=== PATIENT | female | born 1935 | race Caucasian/White ===

== ENCOUNTER 2023-11-26 17:23 | Observation (INO) | payer MEDICARE, BC, SELFPAY ==
[2023-11-26 10:25] VITALS: BP 131/68
--- NOTE | 2023-11-26 10:44 | ED.GENMED ---
History of Present Illness
General
Chief Complaint: Cold/Flu/URI Symptoms
Source: patient
Exam Limitations: none
Time Seen by Provider: 11/26/23 10:30
Travel History
Have you had any contact with someone who has COVID-19?: No
Do you have any symptoms of coronavirus? Fever > 100 degrees, chills, cough, shortness of breath, sore throat, loss of taste or smell, muscle aches, or headache?: No
History of Present Illness
History of Present Illness:
88-year-old female presents from home with her caregiver where she lives with her and 24-hour caregiver with complaints of overwhelming fatigue excess mucus production and loose mucousy stools. She denies chest pain. No measurable fever.
Caregivers also note a slight drop in her pulse ox over the past several days. She has vasculitis and followed by rheumatology. No history of CHF. No known sick contacts. No other complaints at this
Past History
Past History
ED Past Medical History: Cancer (basal cell carcinoma) and Other (Rosacea, eczema)
ED Past Surgical History: Cholecystectomy, Gynecological (D&C), Orthopedic (ankle fracture with an placement 2012) and Tonsilectomy
Patient has exhibited threatening behavior?: No
PSI?: No
Social History
Tobacco: Former smoker
Alcohol: Occasional
Personal:
Living: with family
Employment: Retired
Family History
Family History: Hypertension
Phy Exam
Physical Exam
Physical Exam:
General: Well-appearing female no acute respiratory distress
HEENT: Normocephalic atraumatic
Heart: Regular rate and rhythm no murmurs
Lungs: Clear to auscultation bilaterally no wheezing
Abdomen: Soft nontender nondistended
Extremities: No cyanosis or edema
Skin: Warm no rash
Abdomen soft nontender nondistended
Course
Orders/Labs/Results
Orders:
Orders
11/26/23 10:43
0.9% Sodium Chloride 500 ml [Nss] 500 ml IV BOLUS
CR Chest - 2 Views Urgent
Comment:
Reason For Exam: sob
11/26/23 11:01
COVID-19 Antigen Urgent
Source: Nasal Swab
11/26/23 11:02
Influenza A+B Rapid Molecular Urgent
MELISSA Source: Nasal Swab
Specimen Description:
11/26/23 11:14
Complete Blood Count/With Diff Urgent
Comprehensive Metabolic Panel Urgent
11/26/23 11:53
Urinalysis Reflex To Culture Urgent
Date Specimen was Collected: 11/26/23
Time Specimen was Collected: 11:42
Urine Microscopic Reflex Cult Urgent
Urine Culture Urgent
MELISSA Source: U
Specimen Description:
Date Specimen was Collected: 11/26/23
Time Specimen was Collected: 11:42
11/26/23 13:14
0.9% Sodium Chloride 500 ml [Nss] 500 ml IV BOLUS
11/26/23 15:33
Meropenem [Merrem] 1,000 mg IV NOW STA
11/26/23 15:45
Lactic Acid Q4H
Comment: CANCEL 2nd LACTIC ACID IF 1st LACTIC ACID IS LESS THAN 2
Blood Culture Q30M
MELISSA Source: Blood/Venous
Specimen Description:
11/26/23 16:15
Blood Culture Q30M
MELISSA Source: Blood/Venous
Specimen Description:
11/26/23 19:45
Lactic Acid Q4H
Comment: CANCEL 2nd LACTIC ACID IF 1st LACTIC ACID IS LESS THAN 2
Abnormal Lab Results
11/26/23 11/26/23
11:14 11:53
RBC 3.20 L 10^6/uL
(4.20-5.40)
Hgb 9.7 L g/dL
(12.0-16.0)
Hct 29.9 L %
(37.0-47.0)
MCHC 32.4 L g/dL
(33.0-37.0)
Absolute Monos (auto) 0.8 H 10^3/uL
(0.1-0.6)
Lymphocytes % 15.5 L %
(20.5-51.1)
Monocytes % 10.1 H %
(1.7-9.3)
BUN 53 H mg/dl
(7-17)
Creatinine 1.3 H mg/dL
(0.6-1.0)
Glucose 113 H mg/dl
(70-99)
Total Protein 6.2 L g/dl
(6.3-8.2)
Ur Occult Blood Reflex 1+ A
(Negative)
Leukocyte Esterase Rfl 2+ A
(Negative)
Urine RBC 3-6 A /HPF
(0-2)
Urine WBC (Reflex) 26-30 A /HPF
(0-5)
Urine Bacteria (Reflex) Few A
(Negative)
Urine Albumin (Reflex) 2+ A
(Neg - Trace)
11/26/23 11:14
11/26/23 11:14
Vital Signs
Initial and Last Documented VS:
Initial Vital Signs
Temp Pulse Resp BP
98.5 F 63 20 131/68
11/26/23 10:25 11/26/23 10:25 11/26/23 10:25 11/26/23 10:25
Last Documented Vital Signs
Temp Pulse Resp BP Pulse Ox
98.5 F 62 18 141/63 96
11/26/23 10:25 11/26/23 14:10 11/26/23 14:10 11/26/23 14:10 11/26/23 14:10
MDM/Problems Addressed
Differential Diagnosis Includes:
Main complaint is generalized weakness. Differential could include dehydration versus electrolyte abnormality versus anemia versus viral illness.
Check labs. Will order x-ray COVID and flu test. Will hydrate.
*Critical Care Note
Total Time (30-74mins, 75-104mins- exclusive of procedures): Not Applicable
Update Note
Update Note:
Patient reevaluated multiple times. Still not back to baseline. Family and caregivers expressed significant concern about significant change from baseline. She had does have a history of UTIs in the past and does have a history of
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 UA today with 26-30 white blood cells and bacteria. Chest x-ray was clear COVID was negative. Suspect possible UTI. Meropenem ordered admitted to
ED Attending Note
-
Portions of this chart may have been created with voice recognition software.� Occasional wrong word or��sound alike� substitutions may have occurred due to the inherent limitations of voice recognition software.
Discharge Plan
Departure
Patient Disposition: Admit
Date of Disposition: 11/26/23
Time of Disposition: 15:37
Admit to: Telemetry
Presentation/result/management discussed w/ accepting MD/DO: Hospitalist
Discharge Problem:
Acute UTI
Prescriptions:
No Action
pantoprazole 40 mg tablet,delayed release (DR/EC)
40 mg PO DAILY
calcium carbonate-vitamin D3 [Calcium 600 + D(3)] 600 mg-10 mcg (400 unit) Tablet
1 tab PO BID
mycophenolate mofetil 500 mg tablet
500 mg PO BID
methenamine hippurate 1 gram tablet
1 g PO BID
rosuvastatin 10 mg tablet
10 mg PO DAILY
melatonin 5 mg Tablet
7.5 mg PO HS
Refresh Classic (PF) 1.4-0.6 % Dropperette
1 drops ophthalmic (eye) QIDPRN PRN (Reason: eye redness) Qty: 0 0RF
carvedilol 3.125 mg Tablet
3.125 mg PO BID Qty: 60 0RF
Referrals:
Delio Bryson, [Family Provider] -
Interventions
Interventions:
*Risk Screen - Suicide Last Done: 11/26/23 10:25
*General Assessment Last Done: 11/26/23 10:25
*Neglect/Abuse Screening Last Done: 11/26/23 10:25
ED- Fall Risk Assessment Last Done: 11/26/23 11:05
*ED COVID-19 Vaccine History Last Done: 11/26/23 10:25
ED- Pulmonary Assessment Last Done: 11/26/23 11:17
[2023-11-26 11:27] LABS: % Basophils 0.8 % (0-2); % Eosinophils 2.5 % (0-6); % Immature Granulocytes 0.4 % (0-0.5); % Lymphocytes 15.5 % (20.5-51.1); % Monocytes 10.1 % (1.7-9.3); % Neutrophils 70.7 % (42.2-75.2); Absolute Basophils 0.1 10^3/uL (0-0.2); Absolute Eosinophils 0.2 10^3/uL (0-0.7); Absolute Lymphocytes 1.2 10^3/uL (1.2-3.4); Absolute Monocytes 0.8 10^3/uL (0.1-0.6); Absolute Neutrophils 5.5 10^3/uL (1.4-6.5); Hematocrit 29.9 % (37.0-47.0); Hemoglobin 9.7 g/dL (12.0-16.0); Mean Corp Hgb Conc. 32.4 g/dL (33.0-37.0); Mean Corpuscular Hgb 30.3 pg (27.0-31.0); Mean Corpuscular Volume 93.4 fL (81.0-99.0); Mean Platelet Volume 10.4 fL (7.4-10.4); Nucleated Red Blood Cells % 0 %; Platelet Count 244 10^3/uL (130-400); Red Cell Dist. Width 13.4 % (11.5-14.5); White Blood Cell Count 7.7 10^3/uL (4.8-10.8)
[2023-11-26] MEDS: NSS 500 IV ×2 (11:32→14:00)
[2023-11-26 11:40] LABS: ALT (SGPT) 15 U/L (0-35); AST (SGOT) 24 U/L (14-36); Albumin 3.9 g/dl (3.5-5.0); Alkaline Phosphatase 53 U/L (38-126); Blood Urea Nitrogen 53 mg/dl (7-17); Calcium 9.2 mg/dl (8.4-10.2); Carbon Dioxide 23 mmol/L (22-30); Chloride 107 mmol/L (98-107); Glucose 113 mg/dl (70-99); Potassium 4.4 mmol/L (3.5-5.1); Sodium 135 mmol/L (135-145); Total Bilirubin 0.5 mg/dl (0.2-1.3); Total Protein 6.2 g/dl (6.3-8.2); eGFR 40.05
[2023-11-26 12:06] LABS: Urine Albumin 2+ (Neg - Trace); Urine Bilirubin Negative (Negative); Urine Character Slightly Cloudy (Clear); Urine Color Yellow; Urine Glucose Negative (Negative); Urine Ketone Negative (Negative); Urine Leukocyte 2+ (Negative); Urine Nitrite Negative (Negative); Urine Occult Blood 1+ (Negative); Urine Urobilinogen Negative (Neg - 1+)
[2023-11-26 12:16] LABS: Urine Bacteria Few (Negative); Urine White Cell 26-30 /HPF (0-5)
[2023-11-26 12:21] LABS: COVID-19 Antigen Negative (Negative)
[2023-11-26 14:10] VITALS: BP 141/63
--- NOTE | 2023-11-26 16:33 | HPS.HSE ---
Addendum entered and electronically signed by Leticia Greenwood MD 11/26/23 17:07:
Patient seen and examined independently--agree with PA note
GENERAL: well developed, well nourished, female in no apparent distress
HEENT: NC/AT, constant throat clearing--no O2
HEART: irreg irreg +S1, +S2
LUNGS : clear to auscultation bilaterally
ABDOM: soft, nontender, nondistended, + bowel sounds
EXT: no cyanosis, clubbing, or edema
NEUROLOGIC: grossly intact
Generalized Weakness--multifactorial--due to possible UTI, poor PO intake, weight loss, ? depression--Consult PT/OT--Consult Dietary for weight loss and poor oral intake
Urinary Tract Infection--positive UA--Reviewed prior culture data with ESBL Klebsiella in Aug 2022--Continue meropenem pending urine culture result
Essential Hypertension--Continue Coreg
Hyperlipidemia--Continue rosuvastatin
ANCA-Associated Vasculitis--Continue mycophenolate
CKD Stage III--Creatinine at baseline
Anemia of Chronic Disease--Hgb at baseline
constant throat clearing--? GERD/reflux vs nerves--cont protonix and add pepcid at night
DVT proph: SC Heparin
code status -- FULL CODE
Original Note:
Family Physician
-
Family Physician: Delio Bryson
Chief Complaint
-
Weakness
History of Present Illness
Patient is an 88 y/o female past medical history of hypertension, chronic kidneys disease and vasculitis on immunosuppressants who presents with weakness. Additional history was obtained from patient's caregivers at the bedside. Apparently patient
has had very poor oral intake over the last week or so, and complains of nausea when presented with food. Caregivers have also noted loose/mucousy stools, but note she is consuming very little in terms of nutrition. Caregivers note she has lost
about 10 pounds due to poor oral intake. Patient denies any abdominal pain or bloating. She denies dysuria or urinary frequency. She denies fevers, sweats or chills.
Medical History
Past Medical History
Past Medical History: Reports Other
Additional Past Medical History:
Essential Hypertension
Hyperlipidemia
ANCA Vasculitis
CKD Stage III
Anemia of Chronic Disease
Recurrent UTIs
RLE DVT
Past Surgical History: Reports Other
Additional Past Surgical History:
Moh's Procedure
Cholecystectomy
Right Rotator Cuff Repair
Left Ankle ORIF
Social History
Tobacco: Former Smoker
Alcohol: None
Drug: None
Family History
Family History: Not pertinent
Allergies / Home Medications
Allergies reflects when Allergies were last updated in [facility]
Home Medications with original date entered in [facility]
Allergy/Medication List:
Allergies
Allergy/AdvReac Type Severity Reaction Status Date / Time
erythromycin base Allergy Unknown Verified 09/25/22 12:29
[Erythromycin Base]
Home Medications
pantoprazole 40 mg tablet,delayed release 40 mg PO DAILY Gastrointestinal issue 08/09/22
methenamine hippurate 1 gram tablet 1 g PO BID Urinary Issue 06/27/23
rosuvastatin 10 mg tablet 10 mg PO DAILY High Cholesterol 06/27/23
carvedilol 3.125 mg tablet 3.125 mg PO BID Blood pressure #60 tabs 06/30/23
acetaminophen 325 mg tablet (Tylenol) 325 mg PO Q6HPRN PRN mild pain 11/26/23
ascorbic acid (vitamin C) 500 mg chewable tablet (Vitamin C) 500 mg PO BID Supplement 11/26/23
calcium carbonate 500 mg calcium (1,250 mg) chewable tablet (Calcium 500) 500 mg PO BID Supplement 11/26/23
mycophenolate mofetil 500 mg tablet 500 mg PO BID Autoimmune Disorder 11/26/23
polyvinyl alcohol-povidone (PF) 1.4 %-0.6 % eye drops in a dropperette (Refresh Classic (PF)) 1 drops BOTH EYES TID dry eyes 11/26/23
Review of Systems
-
A 12 point ROS was completed and negative except as noted: Yes
Constitutional: Denies Fever or Chills
Cardiac: Denies Chest Pain or Palpitations
Abdomen/GI: Reports Nausea; Denies Abdominal Pain
Physical Exam
Vital Signs
Vital Signs
Temp Pulse Resp BP Pulse Ox
98.5 F 62 18 141/63 96
11/26/23 10:25 11/26/23 14:10 11/26/23 14:10 11/26/23 14:10 11/26/23 14:10
Physical Exam
General: Comfortable and Conversant
HEENT: Anicteric and Moist mucous membranes
Respiratory: Clear and Non Labored Respirations
Cardiac: S1/S2 and Regular Rhythm
GI: Soft, Non Tender and Non Distended
Rectal: Deferred by Provider
Musculoskeletal: No Clubbing, No Cyanosis and No Edema
Skin: Warm and Dry
Neuro: Awake, Alert and Nonfocal/grossly intact
Psych: Calm
Laboratory Results
-
11/26/23 11:14
11/26/23 11:14
Laboratory Results
Total Bilirubin 0.5 mg/dl (0.2-1.3) 11/26/23 11:14
AST 24 U/L (14-36) 11/26/23 11:14
ALT 15 U/L (0-35) 11/26/23 11:14
Alkaline Phosphatase 53 U/L (38-126) 11/26/23 11:14
Data Reviewed
-
Lab Data: Labs Reviewed by me
Old Records: Reviewed
Impression/Plan
-
Generalized Weakness
-Consult PT/OT
-Consult Dietary for weight loss and poor oral intake
Urinary Tract Infection
-Reviewed prior culture data with ESBL Klebsiella in Aug 2022
-Continue meropenem pending urine culture result
Essential Hypertension
-Continue Coreg
Hyperlipidemia
-Continue rosuvastatin
ANCA-Associated Vasculitis
-Continue mycophenolate
CKD Stage III
-Creatinine at baseline
Anemia of Chronic Disease
-Hgb at baseline
DVT proph: SC Heparin
[2023-11-26 16:40] LABS: Lactic Acid 0.7 mmol/L (0.7-2.0)
--- NOTE | 2023-11-26 16:58 | CM ---
Patient seen at bedside with physician and aides. Patient has 24/7 aides and at home in a 2 story home. Bedroom on the first floor with 2 steps/ramp to enter. Patient stated that her daughter is in charge and CM reviewed OBS/CAMPOS status and
will provide form to patient in am. Patient family supportive and patient plan is to return home with VN/aides. Patient uses the [employer] aide in [place] and her PCP is Dr. Bryson. CM will continue to follow for discharge planning needs.
Plan; home with aides.
[2023-11-26] MEDS: MERREM 1000 MG IV (16:59)
[2023-11-26 17:49] VITALS: BP 139/69
[2023-11-26 18:34] VITALS: BP 155/73; BMI 22.0
--- NOTE | 2023-11-26 18:37 | PTCARENOTE ---
patient received from quality tech. AAOx3 , no complaints, on RA, lung sounds clear, assist x1. No THURSTON/Dizzness, CP/Palp. reports 20 pds weight lose in the last few months, lives at home with and childcare teacher. optical engineering technician at bedside.
[2023-11-26] MEDS: VITAMIN C 500 MG PO (20:14)
[2023-11-26] MEDS: OSCAL CAL 500 500 MG PO (20:14)
[2023-11-26] MEDS: CELLCEPT 500 MG PO (20:14)
[2023-11-26] MEDS: COREG 3.125 MG PO (20:14)
[2023-11-26] MEDS: REFRESH EYE DROPS (PF) 1 DROPS BOTH EYES (20:15)
[2023-11-26] MEDS: HEPARIN 5000 UNITS SC (23:15)
[2023-11-26 23:47] VITALS: BP 130/62
[2023-11-27 05:59] VITALS: BMI 22.1
[2023-11-27] MEDS: MERREM 500 MG IV (06:20)
[2023-11-27] MEDS: STERILE WATER FOR INJECTION 10 ML IV (06:20)
[2023-11-27 06:23] LABS: Hematocrit 30.2 % (37.0-47.0); Hemoglobin 9.7 g/dL (12.0-16.0); Mean Corp Hgb Conc. 32.1 g/dL (33.0-37.0); Mean Corpuscular Hgb 30.5 pg (27.0-31.0); Mean Platelet Volume 10.3 fL (7.4-10.4); Platelet Count 222 10^3/uL (130-400); Red Blood Cell Count 3.18 10^6/uL (4.20-5.40); Red Cell Dist. Width 13.2 % (11.5-14.5); White Blood Cell Count 5.7 10^3/uL (4.8-10.8)
[2023-11-27 06:46] LABS: Blood Urea Nitrogen 38 mg/dl (7-17); Calcium 8.7 mg/dl (8.4-10.2); Carbon Dioxide 24 mmol/L (22-30); Chloride 110 mmol/L (98-107); Estimated Creatinine Clearance 25 ml/min; Glucose 86 mg/dl (70-99); Magnesium 2.1 mg/dl (1.6-2.3); Potassium 4.1 mmol/L (3.5-5.1); Sodium 136 mmol/L (135-145); eGFR 44.08
[2023-11-27 07:00] VITALS: BP 150/87
[2023-11-27 07:17] LABS: TSH Reflex To Free T4 2.76 uIU/ml (0.47-4.68)
[2023-11-27] MEDS: PROTONIX 40 MG PO (09:27)
[2023-11-27] MEDS: OSCAL CAL 500 500 MG PO ×2 (09:27→21:17)
[2023-11-27] MEDS: CRESTOR 10 MG PO (09:27)
[2023-11-27] MEDS: HEPARIN 5000 UNITS SC ×2 (09:27→17:46)
[2023-11-27] MEDS: CELLCEPT 500 MG PO ×2 (09:27→21:11)
[2023-11-27] MEDS: COREG 3.125 MG PO (09:27)
[2023-11-27] MEDS: VITAMIN C 500 MG PO ×2 (09:27→21:20)
[2023-11-27] MEDS: REFRESH EYE DROPS (PF) 1 DROPS BOTH EYES ×3 (09:28→21:20)
--- NOTE | 2023-11-27 11:34 | CM ---
Addendum entered by Jessica Galloway 11/27/23 11:50:
CM spoke with patient daughter regarding OBS status and she requested CM send the form to her at [email or web address]
Original Note:
Patient seen at bedside with physician and patient aide. Patient asking about discharge home. CM to provide OBS/CAMPOS form and and will call patient daughter to confirm discharge plan. Patient more interactive today. CM will continue to follow for
discharge planning needs.
Plan; home with aides and VN supports
--- NOTE | 2023-11-27 11:49 | W.PN.HOSP.TC ---
Today's Communication/Plan
-
stop meropenem
await blood cultures
likely d/c tomorrow
Assessment / Plan
Assessment / Plan
pt is an 88 year old female
Generalized Weakness--multifactorial--due to possible UTI (ruled out), poor PO intake, weight loss, ? depression--await PT/OT--Consult Dietary for weight loss and poor oral intake
Urinary Tract Infection (ruled out, urine culture with contaminants)--Reviewed prior culture data with ESBL Klebsiella in Aug 2022--stop meropenem--await blood culture result
Essential Hypertension--Continue Coreg
Hyperlipidemia--Continue rosuvastatin
ANCA-Associated Vasculitis--Continue mycophenolate
CKD Stage III--Creatinine at baseline
Anemia of Chronic Disease--Hgb at baseline
constant throat clearing--? GERD/reflux vs nerves--cont protonix and add pepcid at night
DVT proph: SC Heparin
code status -- FULL CODE
Anticipated Discharge: Within 24 hours
Subjective/Interval History
-
Date of Service: November 27, 2023
pt without c/o--wants to go home
Objective Data
-
Labs:
Laboratory Results
11/27/23
06:03
WBC 5.7
Hgb 9.7 L
Hct 30.2 L
Plt Count 222
Sodium 136
Potassium 4.1
Chloride 110 H
Carbon Dioxide 24
BUN 38 H
Creatinine 1.2 H
Glucose 86
Calcium 8.7
Vital Signs:
max temp for 24 hours
11/26/23
18:34
Temp 98.6 F
Vital Signs
Temp Pulse Resp BP Pulse Ox
98.0 F 67 17 150/87 96
11/27/23 07:00 11/27/23 09:27 11/27/23 07:00 11/27/23 09:27 11/27/23 07:00
I&O
11/26/23 11/27/23 11/28/23
06:59 06:59 06:59
Intake Total 1000 / 1000
Output Total 0 / 0
Balance 1000 / 1000
Review of Systems
-
All other systems: Reviewed and negative
Physical Exam
-
General: Well Developed, Well Nourished and No Apparent Distress
HEENT: Normocephalic and Atraumatic
Respiratory: Clear to Auscultation; Negative Wheezes or Rhonchi
Cardiac: Regular Rhythm and S1/S2; Negative Murmur
GI: Soft, Nontender, Nondistended and Normal Bowel Sounds
Musculoskeletal: No Clubbing, No Cyanosis and No Edema
Neuro: Awake
Psych: Calm
[2023-11-27 14:37] VITALS: BMI 22.1
[2023-11-27 15:00] VITALS: BP 112/72
[2023-11-27 15:02] VITALS: BP 111/71; BP 128/70; PULSE 59; O2SAT 97
[2023-11-27] MEDS: COREG PO (21:13)
[2023-11-27] MEDS: PEPCID 10 MG PO (21:25)
[2023-11-27 23:35] VITALS: BP 139/69
[2023-11-28] MEDS: HEPARIN 5000 UNITS SC ×2 (00:26→08:37)
[2023-11-28 06:00] VITALS: BMI 22.4
[2023-11-28 07:00] VITALS: BP 146/82
[2023-11-28] MEDS: OSCAL CAL 500 500 MG PO (08:37)
[2023-11-28] MEDS: REFRESH EYE DROPS (PF) 1 DROPS BOTH EYES (08:37)
[2023-11-28] MEDS: CELLCEPT 500 MG PO (08:37)
[2023-11-28] MEDS: CRESTOR 10 MG PO (08:37)
[2023-11-28] MEDS: COREG 3.125 MG PO (08:37)
[2023-11-28] MEDS: VITAMIN C 500 MG PO (08:37)
[2023-11-28] MEDS: PROTONIX 40 MG PO (08:37)
--- NOTE | 2023-11-28 10:26 | W.PN.HOSP.TC ---
Today's Communication/Plan
-
d/c
Assessment / Plan
Assessment / Plan
pt is an 88 year old female
Generalized Weakness--multifactorial--due to possible UTI (ruled out), poor PO intake, weight loss, ?depression--apprec PT/OT--Consult Dietary for weight loss and poor oral intake
Urinary Tract Infection (ruled out, urine culture with contaminants)--Reviewed prior culture data with ESBL Klebsiella in Aug 2022--stop meropenem-- blood culture negative
Essential Hypertension--Continue Coreg
Hyperlipidemia--Continue rosuvastatin
ANCA-Associated Vasculitis--Continue mycophenolate
CKD Stage III--Creatinine at baseline
Anemia of Chronic Disease--Hgb at baseline
constant throat clearing--? GERD/reflux vs nerves--cont protonix and add pepcid at night
DVT proph: SC Heparin
code status -- FULL CODE
Anticipated Discharge: Today
Subjective/Interval History
-
Date of Service: November 28, 2023
pt ready to go home
Objective Data
-
Vital Signs:
max temp for 24 hours
11/27/23
15:00
Temp 98.1 F
Vital Signs
Temp Pulse Resp BP Pulse Ox
98.2 F 82 17 146/82 97
11/28/23 07:00 11/28/23 08:37 11/28/23 07:00 11/28/23 08:37 11/28/23 07:00
I&O
11/27/23 11/28/23 11/29/23
06:59 06:59 06:59
Intake Total 1000 / 1000 660 / 660
Output Total 0 / 0
Balance 1000 / 1000 660 / 660
Review of Systems
-
All other systems: Reviewed and negative
Physical Exam
-
General: Well Developed, Well Nourished and No Apparent Distress
HEENT: Normocephalic and Atraumatic
Respiratory: Clear to Auscultation; Negative Wheezes or Rhonchi
Cardiac: Regular Rhythm and S1/S2; Negative Murmur
GI: Soft, Nontender, Nondistended and Normal Bowel Sounds
Musculoskeletal: No Clubbing, No Cyanosis and No Edema
--- NOTE | 2023-11-28 10:39 | CM ---
Patient seen at bedside with physician. Patient happy for discharge, patient daughter indicated that she wanted patient to discharge with VN; asking for [facility] referral. CM will send tt to liaison. CM will continue to follow for discharge planning
needs.
Plan; home with [facility] referral
--- NOTE | 2023-11-28 12:00 | PTCARENOTE ---
Patient ready for discharge. IV Removed. Went over discharge instructions with patient and patient's daughter.
--- NOTE | 2023-11-28 12:01 | VNURNOTE ---
Home Health Liaison met with patient and caregiver Regina at 1130 to discuss [facility] nurse/therapy, visits, schedule and homebound status. Patient is agreeable and understands that visits at home will be 2-3 x per week to assess and teach medical
management.
[facility] brochure provided with contact information. Patient is aware that [facility] will contact her for start of care in 1-2 days after discharge from .
[facility] referral completed in [facility].
--- NOTE | 2023-11-28 13:55 | W.DCSUMMARY ---
Discharge Summary
Discharge Data
Date of Admission: 11/26/23
Date of Discharge: 11/28/23
-
Pending Results: No
Hospital Course
Primary care physician : Delio Bryson
Principal Discharge diagnosis : Generalized weakness
Chronic Discharge diagnosis : essential hypertension, hyperlipidemia, ANCA associated vasculitis, chronic kidney disease stage III, anemia of chronic disease, constant throat clearing
Hospital Course : Patient was an 88-year-old female who presented with complaints of weakness. Patient has caregivers and apparently the patient had very poor oral intake over the last week or so. She complained of nausea when presented with food.
Caregivers noted loose mucousy stools and was consuming very little in terms of nutrition. Caregiver noted that she lost about 10 pounds which she agrees to due to poor oral intake. Patient was brought in as observation.
Problem #1: Generalized weakness. This was thought to be multifactorial. Initial thoughts were likely urinary tract infection however that was ruled out as her urine culture showed multiple contaminants. Meropenem was started for empiric coverage
and eventually stopped. Blood cultures were negative. Patient was seen in consultation by physical therapy and Occupational Therapy. They recommended home health.
Problem #2: All other medical issues. These include essential hypertension, hyperlipidemia, ANCA associated vasculitis, chronic kidney disease stage III, anemia of chronic disease, constant throat clearing. These medical issues were stable during
her hospitalization. Medications were continued as able.
Patient is stable for discharge home at this time. If there are any questions regarding this dictation or her hospital stay, please not hesitate to call. Our office number is [phone].
Discharge Plan
-
Patient Disposition: Home with Home Care
Discharge Diagnosis/Procedures: Generalized weakness, essential hypertension, hyperlipidemia, history of ANCA associated vasculitis, chronic kidney disease stage III, anemia of chronic disease, gastroesophageal reflux disease
Condition: Good
Diet: As tolerated and Regular
Activity: As tolerated
Driving Restrictions: No driving
Bathing Restrictions: None
Other Services: VN, PT and OT
Referrals:
Delio Bryson, DO [Family Provider] - in less than 1 week
Prescriptions:
New
famotidine 20 mg Tablet
10 mg PO Q2D@2200 Qty: 30 0RF
Continued
pantoprazole 40 mg tablet,delayed release (DR/EC)
40 mg PO DAILY
methenamine hippurate 1 gram tablet
1 g PO BID
rosuvastatin 10 mg tablet
10 mg PO DAILY
carvedilol 3.125 mg Tablet
3.125 mg PO BID Qty: 60 0RF
mycophenolate mofetil 500 mg tablet
500 mg PO BID
Refresh Classic (PF) 1.4-0.6 % dropperette
1 drops BOTH EYES TID
acetaminophen [Tylenol] 325 mg Tablet
325 mg PO Q6HPRN PRN (Reason: mild pain)
ascorbic acid (vitamin C) [Vitamin C] 500 mg Tablet,Chewable
500 mg PO BID
calcium carbonate [Calcium 500] 500 mg calcium (1,250 mg) Tablet,Chewable
500 mg PO BID
Discharge Orders:
Discharge Patient (As Directed); Ordered 11/28/23
Ordered By: Leticia Greenwood
== END 2023-11-28 14:24 | disposition home health service (06) ==
LOC: 3 WEST ACU 17:23
PROVIDERS: Physician Assistant; Physician Assistant Medical; ADMITTING PHYSICIAN Internal Medicine; EMERGENCY PHYSICIAN Emergency Medicine; FAMILY PHYSICIAN Internal Medicine
DX: R53.1 Weakness (principal); R53.83 Other fatigue; E78.5 Hyperlipidemia, unspecified; I77.82 Antineutrophilic cytoplasmic antibody [ANCA] vasculitis; I12.9 Hypertensive chronic kidney disease with stage 1 through stage 4 chronic kidney disease, or unspecified chronic kidney disease; R63.4 Abnormal weight loss; R11.0 Nausea; R19.4 Change in bowel habit; K21.9 Gastro-esophageal reflux disease without esophagitis; D63.8 Anemia in other chronic diseases classified elsewhere; N18.30 Chronic kidney disease, stage 3 unspecified; Z79.624 Long term (current) use of inhibitors of nucleotide synthesis; Z86.718 Personal history of other venous thrombosis and embolism; Z88.1 Allergy status to other antibiotic agents; Z87.891 Personal history of nicotine dependence; Z90.49 Acquired absence of other specified parts of digestive tract; Z85.828 Personal history of other malignant neoplasm of skin; Z82.49 Family history of ischemic heart disease and other diseases of the circulatory system; Z87.440 Personal history of urinary (tract) infections; Z68.22 Body mass index [BMI] 22.0-22.9, adult; Z11.52 Encounter for screening for COVID-19
CPT/HCPCS: 71046; 80048; 80053; 81003; 81015; 83605; 83735; 84443; 85025; 85027; 87040; 87086; 87502; 87811; 96361; 96374; 97129; 97162; 97166; 99285; G0378; J2185

== ENCOUNTER → 2023-12-02 12:13 | Outpatient (REF) | payer MEDICARE, BC, SELFPAY ==
[2023-12-02 13:23] LABS: % Basophils 0.7 % (0-2); % Immature Granulocytes 0.4 % (0-0.5); % Lymphocytes 17.8 % (20.5-51.1); % Monocytes 8.5 % (1.7-9.3); % Neutrophils 69.6 % (42.2-75.2); Absolute Basophils 0.1 10^3/uL (0-0.2); Absolute Eosinophils 0.3 10^3/uL (0-0.7); Absolute Lymphocytes 1.5 10^3/uL (1.2-3.4); Absolute Monocytes 0.7 10^3/uL (0.1-0.6); Absolute Neutrophils 5.8 10^3/uL (1.4-6.5); Hematocrit 32.7 % (37.0-47.0); Hemoglobin 10.3 g/dL (12.0-16.0); Mean Corp Hgb Conc. 31.5 g/dL (33.0-37.0); Mean Corpuscular Volume 95.3 fL (81.0-99.0); Mean Platelet Volume 10.2 fL (7.4-10.4); Nucleated Red Blood Cells % 0 %; Platelet Count 256 10^3/uL (130-400); Red Blood Cell Count 3.43 10^6/uL (4.20-5.40); Red Cell Dist. Width 13.7 % (11.5-14.5); White Blood Cell Count 8.3 10^3/uL (4.8-10.8)
[2023-12-02 13:58] LABS: Blood Urea Nitrogen 34 mg/dl (7-17); Calcium 10.1 mg/dl (8.4-10.2); Carbon Dioxide 23 mmol/L (22-30); Chloride 103 mmol/L (98-107); Glucose 97 mg/dl (70-99); Potassium 5.2 mmol/L (3.5-5.1); Sodium 136 mmol/L (135-145); eGFR 40.05
== END ==
LOC: REG 12:13
PROVIDERS: ATTENDING PHYSICIAN Urology
DX: Z01.818 Encounter for other preprocedural examination (principal)
CPT/HCPCS: 36415; 80048; 85025; 93005

== ENCOUNTER 2023-12-18 16:41 | Inpatient (IN) | payer MEDICARE, BC, SELFPAY ==
[2023-12-18 12:34] VITALS: BP 148/75
--- NOTE | 2023-12-18 14:35 | ED.GENMED ---
History of Present Illness
General
Chief Complaint: Post Operative Problem(s)
Source: patient
Exam Limitations: none
Time Seen by Provider: 12/18/23 14:27
Travel History
Have you had any contact with someone who has COVID-19?: No
Do you have any symptoms of coronavirus? Fever > 100 degrees, chills, cough, shortness of breath, sore throat, loss of taste or smell, muscle aches, or headache?: No
History of Present Illness
History of Present Illness:
See MDM
Past History
Past History
ED Past Medical History: Cancer (basal cell carcinoma) and Other (Rosacea, eczema)
ED Past Surgical History: Cholecystectomy, Gynecological (D&C), Orthopedic (ankle fracture with an placement 2012) and Tonsilectomy
Patient has exhibited threatening behavior?: No
PSI?: No
Social History
Tobacco: Former smoker
Alcohol: Occasional
Personal:
Living: with family
Employment: Retired
Family History
Family History: Hypertension
Phy Exam
Physical Exam
Physical Exam:
See MDM
Course
Orders/Labs/Results
Orders:
Orders
12/18/23 14:30
Urinalysis Reflex To Culture Urgent
Date Specimen was Collected: 12/18/23
Time Specimen was Collected: 14:29
Urine Microscopic Reflex Cult Urgent
Urine Culture Urgent
MELISSA Source: U
Specimen Description:
Date Specimen was Collected: 12/18/23
Time Specimen was Collected: 14:29
12/18/23 14:34
0.9% Sodium Chloride 1000 ml [Nss] 1,000 ml IV BOLUS
12/18/23 14:49
Complete Blood Count/With Diff Urgent
Comprehensive Metabolic Panel Urgent
12/18/23 15:27
Meropenem [Merrem] 1,000 mg IV NOW STA
Abnormal Lab Results
12/18/23 12/18/23
14:30 14:49
RBC 3.48 L 10^6/uL
(4.20-5.40)
Hgb 10.5 L g/dL
(12.0-16.0)
Hct 32.1 L %
(37.0-47.0)
MCHC 32.7 L g/dL
(33.0-37.0)
MPV 10.6 H fL
(7.4-10.4)
Abs Immat Gran (auto) 0.1 H 10^3/uL
(0-0.05)
Absolute Monos (auto) 0.7 H 10^3/uL
(0.1-0.6)
Immature Gran % 1.1 H %
(0-0.5)
Potassium 5.2 H mmol/L
(3.5-5.1)
Chloride 108 H mmol/L
(98-107)
BUN 42 H mg/dl
(7-17)
Creatinine 1.3 H mg/dL
(0.6-1.0)
Ur Occult Blood Reflex 2+ A
(Negative)
Leukocyte Esterase Rfl 2+ A
(Negative)
Urine RBC 3-6 A /HPF
(0-2)
Urine WBC (Reflex) 16-20 A /HPF
(0-5)
Urine Bacteria (Reflex) Few A
(Negative)
12/18/23 14:49
12/18/23 14:49
Vital Signs
Initial and Last Documented VS:
Initial Vital Signs
Temp Pulse Resp BP Pulse Ox
97.9 F 64 18 148/75 100
12/18/23 12:34 12/18/23 12:34 12/18/23 12:34 12/18/23 12:34 12/18/23 12:34
Last Documented Vital Signs
Temp Pulse Resp BP Pulse Ox
97.9 F 64 18 148/75 100
12/18/23 12:34 12/18/23 12:34 12/18/23 12:34 12/18/23 12:34 12/18/23 12:34
MDM/Problems Addressed
Differential Diagnosis Includes:
HPI and MDM Narrative:
88-year-old female presenting with caregiver for evaluation of dehydration, hallucinations and urinary incontinence. Patient does have history of ESBL UTI. When she gets an infection, she starts to have incontinence issues. This is very similar
to prior episodes, per caregiver. Patient had uterine prolapse surgery last week at [facility]. Caregiver states that her p.o. intake has been poor
Given her history of ESBL UTI, will ultimately admit if urine shows evidence of infection. Will reassess after IV fluids
Physical exam
General: Weak and frail
HEENT: protecting airway. Dry mucous membrane
Neck: supple
CV: No evidence of cyanosis
Resp: No accessory muscle use
Abd: Non-distended and nontender
Extremities: No deformities
Neuro: alert
Psych: Normal affect
Skin: Intact
Problems Addressed including Acute and Chronic Conditions affecting care:
1. Urinary incontinence
Acuity: acute
Prognosis: stable
Details: Given recent surgery and history of ESBL UTI, will obtain urinalysis
2. Dehydration
Acuity: acute
Prognosis: stable
Details: Will give IV fluids
Updates
Urine concerning for infection. Will start meropenem
Differential Diagnosis (but not limited to): UTI, dehydration
Testing considered: CT abdomen/pelvis but abdomen soft nontender
Drug therapy (if applicable): OTC meds, please see d/c instruction regarding Rx drugs
Amount and/or Complexity of Data Reviewed
Clinical info obtained from: Patient
External data reviewed: N/A
Labs I independently reviewed (but not limited to): Urinalysis, white blood cell count normal
Radiology: N/A
Pulse Ox: not hypoxic
EKG independently reviewed: N/A
Timber Inspector: N/A
Critical Care: N/A
Risk of Complication:
Social Determinants of health: Good social support
Discussed with other providers: Hospitalist
Escalation of Care includes Admit/Obs: Given the concern for UTI with ongoing hallucinations, will admit
Occasional wrong word or 'sound a like' substitutions may have occurred due to the inherent limitations of voice recognition software. Read the chart carefully and recognize, using context, where substitutions have occurred.
*Critical Care Note
Total Time (30-74mins, 75-104mins- exclusive of procedures): Not Applicable
ED Attending Note
-
Portions of this chart may have been created with voice recognition software.� Occasional wrong word or��sound alike� substitutions may have occurred due to the inherent limitations of voice recognition software.
Discharge Plan
Departure
Patient Disposition: Admit
Date of Disposition: 12/18/23
Time of Disposition: 15:48
Admit to: Med/Surg
Presentation/result/management discussed w/ accepting MD/DO: Hospitalist
Discharge Problem:
Acute UTI, Acute dehydration
Prescriptions:
No Action
pantoprazole 40 mg tablet,delayed release (DR/EC)
40 mg PO DAILY
methenamine hippurate 1 gram tablet
1 g PO BID
rosuvastatin 10 mg tablet
10 mg PO DAILY
carvedilol 3.125 mg Tablet
3.125 mg PO BID Qty: 60 0RF
mycophenolate mofetil 500 mg tablet
500 mg PO BID
aspirin 81 mg Tablet,Chewable
81 mg PO DAILY
ibuprofen 600 mg Tablet
600 mg PO Q8H PRN (Reason: mild pain)
melatonin 5 mg Tablet
7.5 mg PO HS
Systane Balance 0.6 % Drops
3 drp LEFT EYE .SEE BELOW
Patient Comments:
12/18/2023, per pt. and pt.'s friend, pt. takes these eye drops between 2-3 times a day.
Systane Balance 0.6 % Drops
1 - 2 drp RIGHT EYE .SEE BELOW
Patient Comments:
12/18/2023, per pt. and pt.'s friend, pt. takes these eye drops between 2-3 times a day.
ascorbic acid (vitamin C) [Vitamin C] 125 mg Tablet,Chewable
125 mg PO BID
Caltrate 600 plus D 600 mg-20 mcg (800 unit) Tablet,Chewable
1 tab PO BID
famotidine 20 mg tablet
10 mg PO Q48H@2200
Referrals:
Delio Bryson DO [Family Provider] -
Interventions
Interventions:
*Risk Screen - Suicide Last Done: 12/18/23 14:54
*General Assessment Last Done: 12/18/23 14:52
*Neglect/Abuse Screening Last Done: 12/18/23 14:54
*ED COVID-19 Vaccine History Last Done: 12/18/23 14:52
[2023-12-18 14:44] LABS: Urine Albumin Trace (Neg - Trace); Urine Bilirubin Negative (Negative); Urine Character Clear (Clear); Urine Color Yellow; Urine Glucose Negative (Negative); Urine Ketone Negative (Negative); Urine Leukocyte 2+ (Negative); Urine Nitrite Negative (Negative); Urine Occult Blood 2+ (Negative); Urine Specific Gravity 1.015 (<1.030); Urine Urobilinogen Negative (Neg - 1+)
[2023-12-18] MEDS: NSS 1000 IV ×2 (14:51→19:24)
[2023-12-18 14:52] VITALS: BMI 22.1
[2023-12-18 15:02] LABS: Urine Hyaline Cast 0-2 /LPF (0-2); Urine Squamous Cell 16-20 /LPF (Few)
[2023-12-18 15:04] LABS: Urine Bacteria Few (Negative); Urine White Cell 16-20 /HPF (0-5)
[2023-12-18 15:19] LABS: % Basophils 0.6 % (0-2); % Eosinophils 3.2 % (0-6); % Immature Granulocytes 1.1 % (0-0.5); % Lymphocytes 23.7 % (20.5-51.1); % Monocytes 8.5 % (1.7-9.3); % Neutrophils 62.9 % (42.2-75.2); Absolute Basophils 0.1 10^3/uL (0-0.2); Absolute Eosinophils 0.3 10^3/uL (0-0.7); Absolute Immature Granulocytes 0.1 10^3/uL (0-0.05); Absolute Monocytes 0.7 10^3/uL (0.1-0.6); Absolute Neutrophils 5.2 10^3/uL (1.4-6.5); Hematocrit 32.1 % (37.0-47.0); Hemoglobin 10.5 g/dL (12.0-16.0); Mean Corp Hgb Conc. 32.7 g/dL (33.0-37.0); Mean Corpuscular Hgb 30.2 pg (27.0-31.0); Mean Corpuscular Volume 92.2 fL (81.0-99.0); Mean Platelet Volume 10.6 fL (7.4-10.4); Nucleated Red Blood Cells % 0 %; Platelet Count 282 10^3/uL (130-400); Red Blood Cell Count 3.48 10^6/uL (4.20-5.40); Red Cell Dist. Width 13.8 % (11.5-14.5); White Blood Cell Count 8.3 10^3/uL (4.8-10.8)
[2023-12-18 15:24] LABS: ALT (SGPT) 19 U/L (0-35); AST (SGOT) 31 U/L (14-36); Albumin 4.1 g/dl (3.5-5.0); Alkaline Phosphatase 52 U/L (38-126); Blood Urea Nitrogen 42 mg/dl (7-17); Carbon Dioxide 23 mmol/L (22-30); Chloride 108 mmol/L (98-107); Estimated Creatinine Clearance 24 ml/min; Glucose 91 mg/dl (70-99); Potassium 5.2 mmol/L (3.5-5.1); Sodium 135 mmol/L (135-145); Total Bilirubin 0.5 mg/dl (0.2-1.3); Total Protein 6.5 g/dl (6.3-8.2); eGFR 40.05
[2023-12-18] MEDS: MERREM 1000 MG IV (15:55)
--- NOTE | 2023-12-18 16:30 | HPS.HSE ---
Family Physician
-
Family Physician: Delio Bryson
Chief Complaint
-
incontinence, visual hallucinations
History of Present Illness
88-year-old female past medical history of ESBL Klebsiella UTI, recent uterine prolapse surgery, hypertension, hyperlipidemia, ANCA associated vasculitis, CKD stage III, anemia of chronic disease, rosacea, eczema, basal cell carcinoma, presenting
with urinary incontinence for the past few days and visual hallucinations starting today. No fevers or chills. No nausea or vomiting. No diarrhea.
Patient had uterine prolapse surgery last week which was uncomplicated. She felt pretty good after the surgery and did not require any pain medication afterwards.
Patient is also been having pain across her lower back which is new for the past day for which she took ibuprofen. She denies any flank pain.
No smoking or alcohol use.
Medical History
Past Medical History
Past Medical History: Reports Other (ESBL Klebsiella UTI, recent uterine prolapse surgery, hypertension, hyperlipidemia, ANCA associated vasculitis, CKD stage III, anemia of chronic disease, rosacea, eczema, basal cell carcinoma, )
Past Surgical History: Reports Other ( Cholecystectomy, Gynecological (D&C), Orthopedic (ankle fracture with an placement 2012) and Tonsilectomy)
Social History
Tobacco: Non-smoker
Alcohol: None
Drug: None
Family History
Family History: Not pertinent
Allergies / Home Medications
Allergies reflects when Allergies were last updated in [employer].
Home Medications with original date entered in [employer]
Allergy/Medication List:
Allergies
Allergy/AdvReac Type Severity Reaction Status Date / Time
erythromycin base Allergy Unknown Verified 09/25/22 12:29
[Erythromycin Base]
Home Medications
pantoprazole 40 mg tablet,delayed release 40 mg PO DAILY Gastrointestinal issue 08/09/22
methenamine hippurate 1 gram tablet 1 g PO BID Urinary Issue 06/27/23
rosuvastatin 10 mg tablet 10 mg PO DAILY High Cholesterol 06/27/23
carvedilol 3.125 mg tablet 3.125 mg PO BID Blood pressure #60 tabs 06/30/23
mycophenolate mofetil 500 mg tablet 500 mg PO BID Autoimmune Disorder 11/26/23
ascorbic acid (vitamin C) 125 mg chewable tablet (Vitamin C) 125 mg PO BID 12/18/23
aspirin 81 mg chewable tablet 81 mg PO DAILY 12/18/23
calcium carbonate 600 mg-vitamin D3 20 mcg (800 unit) chewable tablet (Caltrate 600 plus D) 1 tab PO BID 12/18/23
famotidine 20 mg tablet 10 mg PO Q48H@2200 12/18/23
ibuprofen 600 mg tablet 600 mg PO Q8H PRN mild pain 12/18/23
melatonin 5 mg tablet 7.5 mg PO HS 12/18/23
propylene glycol 0.6 % eye drops (Systane Balance) 1 - 2 drp RIGHT EYE .SEE BELOW 12/18/23
propylene glycol 0.6 % eye drops (Systane Balance) 3 drp LEFT EYE .SEE BELOW 12/18/23
Review of Systems
-
History Source: Patient
A 12 point ROS was completed and negative except as noted: Yes
Constitutional: Reports No Symptoms
EENT: Reports No Symptoms
Respiratory: Reports No Symptoms
Cardiac: Reports No Symptoms
Abdomen/GI: Reports No Symptoms
: Reports No Symptoms
Musculoskeletal: Reports No Symptoms
Skin: Reports No Symptoms
Neurological: Reports No Symptoms
Endocrine: Reports No Symptoms
Hematologic/Lymphatic: Reports No Symptoms
Psych: Reports No Symptoms
Physical Exam
Vital Signs
Vital Signs
Temp Pulse Resp BP Pulse Ox
97.9 F 64 18 148/75 100
12/18/23 12:34 12/18/23 12:34 12/18/23 12:34 12/18/23 12:34 12/18/23 12:34
Physical Exam
General: Well Developed, Well Nourished and No Apparent Distress
HEENT: NormoCephalic, Moist mucous membranes and Atraumatic
Respiratory: Clear
Cardiac: S1/S2 and Regular Rhythm; No Murmur or Rub
GI: Soft, Non Tender, Non Distended and Normal Bowel Sounds; No Organomegaly
Rectal: Deferred by Provider
Musculoskeletal: No Clubbing, No Cyanosis and No Edema
Skin: No Rash
Neuro: Nonfocal/grossly intact
Laboratory Results
-
12/18/23 14:49
12/18/23 14:49
Laboratory Results
Total Bilirubin 0.5 mg/dl (0.2-1.3) 12/18/23 14:49
AST 31 U/L (14-36) 12/18/23 14:49
ALT 19 U/L (0-35) 12/18/23 14:49
Alkaline Phosphatase 52 U/L (38-126) 12/18/23 14:49
Data Reviewed
-
Lab Data: Labs Reviewed by me
Old Records: Reviewed
Impression/Plan
-
IMPRESSION:
PLAN:
# Urinary tract infection
# Prior history of ESBL Klebsiella UTI
-UA shows +2 leukocyte esterase, 16-20 WBC,
-IV fluids
-Urine culture pending
-Meropenem
#CKD stage III
# Hyperkalemia secondary to dehydration
-Renal function stable
-IV fluids
-Hold ibuprofen
# Lower back pain likely musculoskeletal
-Tylenol as needed
Recent uterine prolapse surgery
-Tylenol as needed for pain
-Hold ibuprofen
Essential hypertension
-Continue Coreg
-Continue prophylactic aspirin
Hyperlipidemia
-Continue statin
ANCA associated vasculitis
-Continue mycophenolate
Anemia of chronic disease
-Hemoglobin stable
GERD
-Continue Protonix, famotidine
Full code
DVT prophylaxis�heparin
Regular diet
[2023-12-18 17:22] VITALS: BP 128/85
[2023-12-18 18:19] VITALS: BP 149/77; BMI 22.2
--- NOTE | 2023-12-18 18:30 | PTCARENOTE ---
Received patient from ED into room 2138. Patient AAOx3, VSS, assist x1 with RW, ambulatory in room and OOB to chair for dinner. Patient forgetful at times, bed alarm in place, admission questions answered with assistance of patient's daughter and
home health caregiver. NSS infusing into R wrist IV at 70 ml/hr. Patient oriented to room and call falcon, states no concerns at this time.
[2023-12-18] MEDS: OSCAL 500 + D 500 MG PO (20:30)
[2023-12-18] MEDS: COREG 3.125 MG PO (20:30)
[2023-12-18] MEDS: HEPARIN 5000 UNITS SC (20:30)
[2023-12-18] MEDS: VITAMIN C 125 MG PO (20:31)
[2023-12-18] MEDS: CELLCEPT 500 MG PO (20:32)
[2023-12-18] MEDS: PEPCID 10 MG PO (21:53)
[2023-12-18] MEDS: MELATONIN 5 MG PO (21:53)
[2023-12-18] MEDS: REFRESH EYE DROPS (PF) 3 DROPS LEFT EYE (21:54)
[2023-12-18] MEDS: REFRESH EYE DROPS (PF) 1 DROPS RIGHT EYE (21:54)
[2023-12-18 23:38] VITALS: BP 125/59
[2023-12-19] MEDS: STERILE WATER FOR INJECTION 20 ML IV ×2 (03:26→15:36)
[2023-12-19] MEDS: MERREM 1000 MG IV ×2 (03:26→15:36)
[2023-12-19 06:11] LABS: % Basophils 0.6 % (0-2); % Eosinophils 5.6 % (0-6); % Immature Granulocytes 0.3 % (0-0.5); % Lymphocytes 31.5 % (20.5-51.1); Absolute Eosinophils 0.4 10^3/uL (0-0.7); Absolute Monocytes 0.7 10^3/uL (0.1-0.6); Absolute Neutrophils 3.3 10^3/uL (1.4-6.5); Hematocrit 29.3 % (37.0-47.0); Hemoglobin 9.4 g/dL (12.0-16.0); Mean Corp Hgb Conc. 32.1 g/dL (33.0-37.0); Mean Corpuscular Hgb 30.6 pg (27.0-31.0); Mean Corpuscular Volume 95.4 fL (81.0-99.0); Mean Platelet Volume 10.8 fL (7.4-10.4); Nucleated Red Blood Cells % 0 %; Platelet Count 230 10^3/uL (130-400); Red Blood Cell Count 3.07 10^6/uL (4.20-5.40); Red Cell Dist. Width 13.6 % (11.5-14.5); White Blood Cell Count 6.5 10^3/uL (4.8-10.8)
[2023-12-19 06:37] LABS: ALT (SGPT) 16 U/L (0-35); AST (SGOT) 23 U/L (14-36); Albumin 3.2 g/dl (3.5-5.0); Alkaline Phosphatase 61 U/L (38-126); Blood Urea Nitrogen 32 mg/dl (7-17); Calcium 8.3 mg/dl (8.4-10.2); Carbon Dioxide 22 mmol/L (22-30); Chloride 112 mmol/L (98-107); Estimated Creatinine Clearance 26 ml/min; Glucose 80 mg/dl (70-99); Potassium 4.4 mmol/L (3.5-5.1); Sodium 137 mmol/L (135-145); Total Bilirubin 0.3 mg/dl (0.2-1.3); Total Protein 5.3 g/dl (6.3-8.2); eGFR 44.08
[2023-12-19 07:18] VITALS: BP 140/77
[2023-12-19] MEDS: VITAMIN C 125 MG PO ×2 (08:37→20:30)
[2023-12-19] MEDS: CRESTOR 10 MG PO (08:37)
[2023-12-19] MEDS: PROTONIX 40 MG PO (08:38)
[2023-12-19] MEDS: CELLCEPT 500 MG PO ×2 (08:38→20:31)
[2023-12-19] MEDS: COREG 3.125 MG PO ×2 (08:38→20:31)
[2023-12-19] MEDS: LOW STRENGTH ASPIRIN 81 MG PO (08:38)
[2023-12-19] MEDS: REFRESH EYE DROPS (PF) 3 DROPS LEFT EYE ×3 (08:38→22:15)
[2023-12-19] MEDS: OSCAL 500 + D 500 MG PO ×2 (08:39→20:31)
[2023-12-19] MEDS: REFRESH EYE DROPS (PF) 1 DROPS RIGHT EYE ×3 (08:39→22:15)
[2023-12-19] MEDS: HEPARIN 5000 UNITS SC ×2 (08:39→20:31)
[2023-12-19] MEDS: NSS 1000 IV (08:40)
--- NOTE | 2023-12-19 08:58 | W.PN.HOSP.TC ---
Today's Communication/Plan
-
IV Meropenem
F/U urine culture
Assessment / Plan
Assessment / Plan
88-year-old female past medical history of ESBL Klebsiella UTI, recent uterine prolapse surgery, hypertension, hyperlipidemia, ANCA associated vasculitis, CKD stage III, anemia of chronic disease, rosacea, eczema, basal cell carcinoma, presenting
with urinary incontinence for the past few days and visual hallucinations..
�
PLAN:
# Urinary tract infection
# Prior history of ESBL Klebsiella UTI
-UA shows +2 leukocyte esterase, 16-20 WBC,
-Urine culture pending
-Meropenem
-OK to stop fluids
#CKD stage III
#Hyperkalemia secondary to dehydration
-Renal function stable
-hyper K resolved, OK to stop fluids
# Lower back pain likely musculoskeletal
-Tylenol as needed
Recent uterine prolapse surgery
-Tylenol as needed for pain
-Hold ibuprofen
Essential hypertension
-Continue Coreg
-Continue prophylactic aspirin
Hyperlipidemia
-Continue statin
ANCA associated vasculitis
-Continue mycophenolate
Anemia of chronic disease
-Hemoglobin stable
GERD
-Continue Protonix, famotidine
Full code
DVT prophylaxis�heparin
Regular diet
Anticipated Discharge: 24 - 48 hours
Subjective/Interval History
-
Date of Service: December 19, 2023
feeling well
no significant complaints this morning
not hallucinating per RN
Objective Data
-
Labs:
Laboratory Results
12/19/23
04:49
WBC 6.5
Hgb 9.4 L
Hct 29.3 L
Plt Count 230
Sodium 137
Potassium 4.4
Chloride 112 H
Carbon Dioxide 22
BUN 32 H
Creatinine 1.2 H
Glucose 80
Calcium 8.3 L
Total Bilirubin 0.3
AST 23
ALT 16
Alkaline Phosphatase 61
Vital Signs:
Vital Signs
Temp Pulse Resp BP Pulse Ox
97.8 F 57 16 140/77 99
12/19/23 07:18 12/19/23 08:38 12/19/23 07:18 12/19/23 08:38 12/19/23 07:18
I&O
12/18/23 12/19/23 12/20/23
06:59 06:59 06:59
Intake Total 1040 / 1040
Balance 1040 / 1040
Review of Systems
-
History Source: Patient
All other systems: Reviewed and negative
Physical Exam
-
General: Well Developed, Well Nourished and No Apparent Distress
HEENT: Normocephalic and Atraumatic
Respiratory: Clear to Auscultation; Negative Wheezes or Rhonchi
Cardiac: Regular Rhythm and S1/S2; Negative Murmur
GI: Soft, Nontender, Nondistended and Normal Bowel Sounds
Musculoskeletal: No Clubbing, No Cyanosis and No Edema
Neuro: AO x 3
Psych: Calm
Data Reviewed
-
Diagnostic Radiology: Report Reviewed by me
Labs: Labs Reviewed by me
[2023-12-19] MEDS: SENOKOT-S 1 TABLET PO (09:04)
--- NOTE | 2023-12-19 14:06 | CM ---
Reviewed the chart notes and spoke with the patient and caregiver at the bedside. The patient has caregivers daily from 8am-3pm, 3pm-8pm, and 8pm-8am through private caregivers. The patient resides with her spouse in a two story home with a
completed first floor master bedroom with shower. There is one step to enter. The patient has a rolling walker, shower chair, and multiple rails in the bathroom. The patient confirmed that the pharmacy of choice is the [facility] [address]
[facility] continues to be available to patient/family and is monitoring medical plan for needs at discharge.
Plan: Discharge plans will depend on the patient's progress.
[2023-12-19 14:09] LABS: Urine Albumin Trace (Neg - Trace); Urine Bilirubin Negative (Negative); Urine Character Clear (Clear); Urine Color Yellow; Urine Glucose Negative (Negative); Urine Ketone Negative (Negative); Urine Leukocyte 1+ (Negative); Urine Nitrite Negative (Negative); Urine Occult Blood 1+ (Negative); Urine Urobilinogen Negative (Neg - 1+)
[2023-12-19 14:28] LABS: Urine Bacteria Moderate (Negative); Urine White Cell 26-30 /HPF (0-5)
[2023-12-19 14:44] VITALS: BP 134/78; PULSE 59; O2SAT 98
[2023-12-19 15:17] VITALS: BP 137/71
--- NOTE | 2023-12-19 15:48 | CON.ID ---
Consultation
-
Date/Time Consultation Requested: 12/19/23 12:18
Date/Time Consultation Performed: 12/19/23 15:56
Requesting Provider: Dr Castellanos
Performing Provider: Dr Plaza
Reason for Consultation: esbl uti
Chief Complaint / Past History
Chief Complaint
incontinence, visual hallucinations
History of Present Illness
Ms Solis is an 88 year old female with history of uterine prolapse surgery, anaca vasculitis, ckd3, colonization with esbl who presented her for increase of her baseline incontinence. No fevers, chills, nausea, vomiting or diarrhea. Does
report lower back pain responding to ibuprofen - no flank pain.
Since arrival here she is afebrile, bp stable, without leukocytosis or L shift, cr 1.2 which is her baseline, ua iwth 26-30 wbc/hpf and moderate bacteria, about 1 year ago with an ESBL kleb UTI only sensitive to carbapenems. She has been started on
meropenem. ID is consulted for assistance with management.
Past History
Additional Past Medical History:
ESBL Klebsiella UTI, recent uterine prolapse surgery, hypertension, hyperlipidemia, ANCA associated vasculitis, CKD stage III, anemia of chronic disease, rosacea, eczema, basal cell carcinoma
Additional Past Surgical History:
Cholecystectomy, Gynecological (D&C), Orthopedic (ankle fracture with an placement 2012) and Tonsilectomy
Allergy History:
erythromycin base [Erythromycin Base] Allergy (Verified 09/25/22 12:29)
Unknown
Medications Reviewed: Yes
Social History
Tobacco: Non-Smoker
Alcohol: None
Drug: None
Family History
Family History: Not Pertinent
Review of Systems
Review of Systems
General: Negative Fever or Chills
Gasteroenterology: Negative Nausea or Vomiting
Genital / Urological: Negative Dysuria
All systems: All other systems were reviewed and were negative
Vital Signs
Temp Pulse Resp BP Pulse Ox
97.8 F 57 16 140/77 99
12/19/23 07:18 12/19/23 08:38 12/19/23 07:18 12/19/23 08:38 12/19/23 10:33
Physical Exam
Physical Exam
Constitutional: No Acute Distress
Cardiovascular: Regular Rate and S1/S2; Negative Murmur or Rub
Pulmonary: Clear and Symmetric; Negative Wheezes, Rales or Rhonchi
Gastrointestinal: Soft, Non Tender, Non Distended and Normal Bowel Sounds
Genito-Urinary: Negative Suprapubic Tenderness or CVA Tenderness
Skin: Warm and Dry; Negative Rash or Jaundice
Lab / Diagnostic Study Results
12/19/23 04:49
12/19/23 04:49
Abs Immat Gran (auto) 0.0 10^3/uL (0-0.05) 12/19/23 04:49
Absolute Neuts (auto) 3.3 10^3/uL (1.4-6.5) 12/19/23 04:49
Absolute Lymphs (auto) 2.0 10^3/uL (1.2-3.4) 12/19/23 04:49
Absolute Monos (auto) 0.7 10^3/uL (0.1-0.6) H 12/19/23 04:49
Absolute Basos (auto) 0.0 10^3/uL (0-0.2) 12/19/23 04:49
Immature Gran % 0.3 % (0-0.5) 12/19/23 04:49
Neutrophils % 51.0 % (42.2-75.2) 12/19/23 04:49
Lymphocytes % 31.5 % (20.5-51.1) 12/19/23 04:49
Monocytes % 11.0 % (1.7-9.3) H 12/19/23 04:49
Eosinophils % 5.6 % (0-6) 12/19/23 04:49
Basophils % 0.6 % (0-2) 12/19/23 04:49
Ur Squamous Epith Cells 3-5 /LPF (Few) 12/19/23 13:54
Microbiology Results
Micro:
12/19/23 13:54 Urine Culture - Pending
Urine
12/18/23 14:30 Urine Culture - Final
Urine
Assessment / Plan
Possible UTI
H/o colonization with esbl
- if fever then send blood cultures x2
- follow urine culture
- agree with meropenem - likely for short course of therapy
- follow clinically
[2023-12-19] MEDS: VISBIOME 2 CAP PO (16:22)
[2023-12-19] MEDS: MELATONIN 5 MG PO (22:15)
[2023-12-19 23:30] VITALS: BP 114/62
[2023-12-20] MEDS: MERREM 1000 MG IV (05:01)
[2023-12-20] MEDS: STERILE WATER FOR INJECTION 20 ML IV (05:01)
[2023-12-20 07:40] VITALS: BP 112/55
[2023-12-20] MEDS: LOW STRENGTH ASPIRIN 81 MG PO (08:45)
[2023-12-20] MEDS: OSCAL 500 + D 500 MG PO ×2 (08:45→21:00)
[2023-12-20] MEDS: PROTONIX 40 MG PO (08:45)
[2023-12-20] MEDS: VITAMIN C 125 MG PO ×2 (08:45→20:10)
[2023-12-20] MEDS: VISBIOME 2 CAP PO (08:45)
[2023-12-20] MEDS: SENOKOT-S 1 TABLET PO (08:46)
[2023-12-20] MEDS: CRESTOR 10 MG PO (08:46)
[2023-12-20] MEDS: REFRESH EYE DROPS (PF) 1 DROPS RIGHT EYE ×3 (08:47→22:05)
[2023-12-20] MEDS: REFRESH EYE DROPS (PF) 3 DROPS LEFT EYE ×3 (08:47→22:05)
[2023-12-20] MEDS: HEPARIN 5000 UNITS SC ×2 (08:47→20:07)
[2023-12-20] MEDS: CELLCEPT 500 MG PO ×2 (08:48→20:09)
[2023-12-20] MEDS: COREG PO ×3 (08:52→20:24)
--- NOTE | 2023-12-20 09:06 | W.PN.HOSP.TC ---
Today's Communication/Plan
-
IV Meropenem
appreciate ID
Assessment / Plan
Assessment / Plan
88-year-old female past medical history of ESBL Klebsiella UTI, recent uterine prolapse surgery, hypertension, hyperlipidemia, ANCA associated vasculitis, CKD stage III, anemia of chronic disease, rosacea, eczema, basal cell carcinoma, presenting
with urinary incontinence for the past few days and visual hallucinations..
�
PLAN:
# Urinary tract infection
# Prior history of ESBL Klebsiella UTI
-UA shows +2 leukocyte esterase, 16-20 WBC,
-Urine culture with contamination but patient improving on IV Meropenem
-appreciate ID
-continue abx course
#CKD stage III
#Hyperkalemia secondary to dehydration
-Renal function stable
-hyper K resolved, OK to stop fluids
# Lower back pain likely musculoskeletal
-Tylenol as needed
Recent uterine prolapse surgery
-Tylenol as needed for pain
-Hold ibuprofen
-some incontinence may be related to this surgery
Essential hypertension
-Continue Coreg
-Continue prophylactic aspirin
Hyperlipidemia
-Continue statin
ANCA associated vasculitis
-Continue mycophenolate
Anemia of chronic disease
-Hemoglobin stable
GERD
-Continue Protonix, famotidine
Full code
DVT prophylaxis�heparin
Regular diet
Anticipated Discharge: 24 - 48 hours
Subjective/Interval History
-
Date of Service: December 20, 2023
incontinence seems to be improving
confusion resolved
Objective Data
-
Labs:
Laboratory Results
12/20/23
06:00
Sodium Pending
Potassium Pending
Chloride Pending
Carbon Dioxide Pending
BUN Pending
Creatinine Pending
Glucose Pending
Calcium Pending
Vital Signs:
Vital Signs
Temp Pulse Resp BP Pulse Ox
98.6 F 56 16 112/55 97
12/20/23 07:40 12/20/23 07:40 12/20/23 07:40 12/20/23 07:40 12/20/23 07:40
I&O
12/19/23 12/20/23 12/21/23
06:59 06:59 06:59
Intake Total 1040 / 1040 1000 / 1000
Balance 1040 / 1040 1000 / 1000
Review of Systems
-
History Source: Patient
All other systems: Reviewed and negative
Physical Exam
-
General: Well Developed, Well Nourished and No Apparent Distress
HEENT: Normocephalic and Atraumatic
Respiratory: Clear to Auscultation; Negative Wheezes or Rhonchi
Cardiac: Regular Rhythm and S1/S2; Negative Murmur
GI: Soft, Nontender, Nondistended and Normal Bowel Sounds
Musculoskeletal: No Clubbing, No Cyanosis and No Edema
Neuro: AO x 3
Psych: Calm
Data Reviewed
-
Diagnostic Radiology: Report Reviewed by me
Labs: Labs Reviewed by me
[2023-12-20 09:50] LABS: Blood Urea Nitrogen 23 mg/dl (7-17); Calcium 8.8 mg/dl (8.4-10.2); Carbon Dioxide 24 mmol/L (22-30); Chloride 109 mmol/L (98-107); Estimated Creatinine Clearance 26 ml/min; Glucose 90 mg/dl (70-99); Potassium 4.6 mmol/L (3.5-5.1); Sodium 137 mmol/L (135-145); eGFR 44.08
--- NOTE | 2023-12-20 14:14 | W.PN.ID1 ---
Date of Service
Date of Service: December 20, 2023
Today's Communication
stop antibiotics
Assessment / Plan
Ruled Out UTI
H/o colonization with esbl
- urine culture negative x2
- stop antibiotics and follow clinically, if afebrile overnight stable for dc in the am without further antibiotics
Chief Complaint
-: UTI
Subjective / Review of Systems
afebrile
bp stable
cr stable
urine culture neg x2
no suprapubic tenderness
Vital Signs / Physical Exam
Vital Signs
Vital Signs
Temp Pulse Resp BP Pulse Ox
98.6 F 56 16 112/55 97
12/20/23 07:40 12/20/23 08:52 12/20/23 07:40 12/20/23 08:52 12/20/23 08:00
Physical Exam
Constitutional: No Acute Distress
Cardiovascular: Regular Rate and S1/S2; Negative Murmur or Rub
Pulmonary: Clear and Symmetric; Negative Wheezes or Rales
Gastrointestinal: Soft, Non Tender, Non Distended and Normal Bowel Sounds
Genito-Urinary: Negative Suprapubic Tenderness
Skin: Warm and Dry; Negative Rash or Jaundice
Objective Data
Lab Data
Lab Results
12/19/23 04:49
12/20/23 09:10
Estimated Creat Clear 26 ml/min 12/20/23 09:10
Total Bilirubin 0.3 mg/dl (0.2-1.3) 12/19/23 04:49
AST 23 U/L (14-36) 12/19/23 04:49
ALT 16 U/L (0-35) 12/19/23 04:49
Alkaline Phosphatase 61 U/L (38-126) 12/19/23 04:49
Most recent labs reviewed.
Micro Results:
12/19/23 13:54 Urine Culture - Final
Urine NO GROWTH
12/18/23 14:30 Urine Culture - Final
Urine
Care Review
Plan reviewed with: Physician (Dr Castellanos - lelia)
[2023-12-20 15:45] VITALS: BP 127/65
--- NOTE | 2023-12-20 16:02 | CM ---
IMM signed and placed on the chart.
[2023-12-20] MEDS: PEPCID 10 MG PO (22:03)
[2023-12-20] MEDS: MELATONIN 5 MG PO (22:04)
[2023-12-20 23:26] VITALS: BP 120/87
[2023-12-21 07:35] VITALS: BP 134/78
--- NOTE | 2023-12-21 08:58 | W.PN.HOSP.TC ---
Today's Communication/Plan
-
OK for DC home today
Assessment / Plan
Assessment / Plan
88-year-old female past medical history of ESBL Klebsiella UTI, recent uterine prolapse surgery, hypertension, hyperlipidemia, ANCA associated vasculitis, CKD stage III, anemia of chronic disease, rosacea, eczema, basal cell carcinoma, presenting
with urinary incontinence for the past few days and visual hallucinations..
�
PLAN:
# Urinary tract infection
# Prior history of ESBL Klebsiella UTI
-UA shows +2 leukocyte esterase, 16-20 WBC,
-Urine culture with contamination; repeat without growth
-per ID OK to stop abx; observed overnight and patient continues to feel well
-OK for DC home
-appreciate ID
#CKD stage III
#Hyperkalemia secondary to dehydration
-Renal function stable
-hyper K resolved, OK to stop fluids
# Lower back pain likely musculoskeletal
-Tylenol as needed
Recent uterine prolapse surgery
-Tylenol as needed for pain
-Hold ibuprofen
-some incontinence may be related to this surgery
Essential hypertension
-Continue Coreg
-Continue prophylactic aspirin
Hyperlipidemia
-Continue statin
ANCA associated vasculitis
-Continue mycophenolate
Anemia of chronic disease
-Hemoglobin stable
GERD
-Continue Protonix, famotidine
Full code
DVT prophylaxis�heparin
Regular diet
Anticipated Discharge: Today
Subjective/Interval History
-
Date of Service: December 21, 2023
feeling well
no fevers
urinary incontinence at baseline
wants to go home
Objective Data
-
Vital Signs:
Vital Signs
Temp Pulse Resp BP Pulse Ox
98.3 F 72 18 134/78 96
12/21/23 07:35 12/21/23 07:35 12/21/23 07:35 12/21/23 07:35 12/21/23 07:35
I&O
12/20/23 12/21/23 12/22/23
06:59 06:59 06:59
Intake Total 1000 / 1000 1320 / 1320
Balance 1000 / 1000 1320 / 1320
Review of Systems
-
History Source: Patient
All other systems: Reviewed and negative
Physical Exam
-
General: Well Developed, Well Nourished and No Apparent Distress
HEENT: Normocephalic and Atraumatic
Respiratory: Clear to Auscultation; Negative Wheezes or Rhonchi
Cardiac: Regular Rhythm and S1/S2; Negative Murmur
GI: Soft, Nontender, Nondistended and Normal Bowel Sounds
Musculoskeletal: No Clubbing, No Cyanosis and No Edema
Neuro: AO x 3
Psych: Calm
Data Reviewed
-
Diagnostic Radiology: Report Reviewed by me
Labs: Labs Reviewed by me
--- NOTE | 2023-12-21 09:03 | W.DS.TRANS ---
DC Summary - [employer]
-
Discharge Instructions:
Discharge Diagnosis/Procedures urinary incontinence, concern for urinary tract
infection
Diet Regular
Activity As tolerated
Driving Restrictions As prior to admission
Bathing Restrictions None
Instructions:
Stand-Alone Forms:
Changes to Home Medications: Yes
Discharge Medications:
DC Medications w/original date entered in [facility]
pantoprazole 40 mg tablet,delayed release 40 mg PO DAILY Gastrointestinal issue 08/09/22
methenamine hippurate 1 gram tablet 1 g PO BID Urinary Issue 06/27/23
rosuvastatin 10 mg tablet 10 mg PO DAILY High Cholesterol 06/27/23
carvedilol 3.125 mg tablet 3.125 mg PO BID Blood pressure #60 tabs 06/30/23
mycophenolate mofetil 500 mg tablet 500 mg PO BID Autoimmune Disorder 11/26/23
ascorbic acid (vitamin C) 125 mg chewable tablet (Vitamin C) 125 mg PO BID 12/18/23
aspirin 81 mg chewable tablet 81 mg PO DAILY 12/18/23
calcium carbonate 600 mg-vitamin D3 20 mcg (800 unit) chewable tablet (Caltrate 600 plus D) 1 tab PO BID 12/18/23
famotidine 20 mg tablet 10 mg PO Q48H@2200 12/18/23
melatonin 5 mg tablet 7.5 mg PO HS 12/18/23
propylene glycol 0.6 % eye drops (Systane Balance) 1 - 2 drp RIGHT EYE .SEE BELOW 12/18/23
propylene glycol 0.6 % eye drops (Systane Balance) 3 drp LEFT EYE .SEE BELOW 12/18/23
sennosides 8.6 mg-docusate sodium 50 mg tablet (Senokot-S) 1 tab PO DAILY 12/18/23
Home Medication Changes
stop motrin
Pending Results: No
[2023-12-21] MEDS: SENOKOT-S 1 TABLET PO (09:09)
[2023-12-21] MEDS: VISBIOME 2 CAP PO (09:09)
[2023-12-21] MEDS: CRESTOR 10 MG PO (09:09)
[2023-12-21] MEDS: PROTONIX 40 MG PO (09:10)
[2023-12-21] MEDS: LOW STRENGTH ASPIRIN 81 MG PO (09:10)
[2023-12-21] MEDS: VITAMIN C 125 MG PO (09:10)
[2023-12-21] MEDS: CELLCEPT 500 MG PO (09:10)
[2023-12-21] MEDS: REFRESH EYE DROPS (PF) 1 DROPS RIGHT EYE (09:11)
[2023-12-21] MEDS: OSCAL 500 + D 500 MG PO (09:11)
[2023-12-21] MEDS: REFRESH EYE DROPS (PF) 3 DROPS LEFT EYE (09:11)
[2023-12-21] MEDS: HEPARIN 5000 UNITS SC (09:12)
[2023-12-21] MEDS: COREG 3.125 MG PO (09:13)
--- NOTE | 2023-12-21 10:29 | W.PN.ID1 ---
Date of Service
Date of Service: December 21, 2023
Assessment / Plan
Ruled Out UTI
H/o colonization with esbl
- stable for dc from ID perspective
- follow up with pcp
Chief Complaint
-: UTI (ruled out)
Subjective / Review of Systems
remains afebrile - bp stable
no complaints
Vital Signs / Physical Exam
Vital Signs
Vital Signs
Temp Pulse Resp BP Pulse Ox
98.3 F 72 18 134/78 96
12/21/23 07:35 12/21/23 07:35 12/21/23 07:35 12/21/23 07:35 12/21/23 07:35
Physical Exam
Constitutional: No Acute Distress
Cardiovascular: Regular Rate and S1/S2; Negative Murmur or Rub
Pulmonary: Clear and Symmetric; Negative Wheezes or Rales
Gastrointestinal: Soft, Non Tender, Non Distended and Normal Bowel Sounds
Skin: Warm and Dry; Negative Rash or Jaundice
Objective Data
Lab Data
Lab Results
12/19/23 04:49
12/20/23 09:10
Estimated Creat Clear 26 ml/min 12/20/23 09:10
Total Bilirubin 0.3 mg/dl (0.2-1.3) 12/19/23 04:49
AST 23 U/L (14-36) 12/19/23 04:49
ALT 16 U/L (0-35) 12/19/23 04:49
Alkaline Phosphatase 61 U/L (38-126) 12/19/23 04:49
Most recent labs reviewed.
Micro Results:
12/19/23 13:54 Urine Culture - Final
Urine NO GROWTH
12/18/23 14:30 Urine Culture - Final
Urine
--- NOTE | 2023-12-21 11:27 | CM ---
Reviewed the chart notes and spoke with the patient at the bedside. Patient is being discharged today to home. Patient's caregiver will provide transportation home. Discussed if patient felt she needed VN. Declined at this time. CM continues to
be available to patient/family and is monitoring medical plan for needs at discharge.
Plan: Discharge to home with no needs.
--- NOTE | 2023-12-21 14:28 | W.DCSUMMARY ---
Discharge Summary
Discharge Data
Date of Admission: 12/18/23
Date of Discharge: 12/21/23
-
Pending Results: No
Hospital Course
Discharging Physician : Dr. Claudia Castellanos
Disposition : Home
Primary care physician : Dr. Delio Bryson
Principal Discharge diagnosis : urinary incontinence
Hospital Course :
Ms. Honey Solis is a 88 yo woman with hx ESBL Klebsiella, recent uterine prolapse surgery last week, HTN, HLD, ANCA associated vasculitis, CKD stage III presents to the ER with an increase in urinary incontinence and confusion/hallucinations.
Family worried about UTI. Patient's UA with 26-30 WBC. She was started on IV Meropenem. Urine culture returned with mixed umesh; repeated and no growth. ID consulted given unclear if patient's initial presentation was 2/2 UTI. Patient observed
off of Meropenem and did well without confusion and without change in urinary symptoms. She is discharged home. She has close follow up with her surgeon. Daughter updated.
Time spent on discharge 31 minutes.
Important imaging findings :
Procedure findings :
Discharge Plan
-
Patient Disposition: Home (Routine Discharge)
Discharge Diagnosis/Procedures: urinary incontinence, concern for urinary tract infection
Diet: Regular
Activity: As tolerated
Driving Restrictions: As prior to admission
Bathing Restrictions: None
Referrals:
Delio Bryson, DO [Family Provider] - in less than 1 week
Prescriptions:
Continued
pantoprazole 40 mg tablet,delayed release (DR/EC)
40 mg PO DAILY
methenamine hippurate 1 gram tablet
1 g PO BID
rosuvastatin 10 mg tablet
10 mg PO DAILY
carvedilol 3.125 mg Tablet
3.125 mg PO BID Qty: 60 0RF
mycophenolate mofetil 500 mg tablet
500 mg PO BID
aspirin 81 mg Tablet,Chewable
81 mg PO DAILY
melatonin 5 mg Tablet
7.5 mg PO HS
Systane Balance 0.6 % Drops
3 drp LEFT EYE .SEE BELOW
Patient Comments:
12/18/2023, per pt. and pt.'s friend, pt. takes these eye drops between 2-3 times a day.
Systane Balance 0.6 % Drops
1 - 2 drp RIGHT EYE .SEE BELOW
Patient Comments:
12/18/2023, per pt. and pt.'s friend, pt. takes these eye drops between 2-3 times a day.
ascorbic acid (vitamin C) [Vitamin C] 125 mg Tablet,Chewable
125 mg PO BID
Caltrate 600 plus D 600 mg-20 mcg (800 unit) Tablet,Chewable
1 tab PO BID
famotidine 20 mg tablet
10 mg PO Q48H@2200
sennosides-docusate sodium [Senokot-S] 8.6-50 mg Tablet
1 tab PO DAILY
Discontinued
ibuprofen 600 mg Tablet
600 mg PO Q8H PRN (Reason: mild pain)
Discharge Orders:
Discharge Patient (As Directed); Ordered 12/21/23
Ordered By: Claudia Castellanos
Discharge Date and Time
Discharge Date/Time: 12/21/23 12:52
== END 2023-12-21 12:52 | disposition home or self-care (01) | DRG 696 ==
LOC: 2 NORTH 16:41
PROVIDERS: ADMITTING PHYSICIAN Hospitalist; ATTENDING PHYSICIAN Student in an Organized Health Care Education/Training Program; CONSULT PHYSICIAN Student in an Organized Health Care Education/Training Program; EMERGENCY PHYSICIAN Student in an Organized Health Care Education/Training Program; FAMILY PHYSICIAN Internal Medicine
DX: R32 Unspecified urinary incontinence (principal); I12.9 Hypertensive chronic kidney disease with stage 1 through stage 4 chronic kidney disease, or unspecified chronic kidney disease; N18.30 Chronic kidney disease, stage 3 unspecified; D63.8 Anemia in other chronic diseases classified elsewhere; E87.5 Hyperkalemia; E86.0 Dehydration; E78.5 Hyperlipidemia, unspecified; I77.82 Antineutrophilic cytoplasmic antibody [ANCA] vasculitis; K21.9 Gastro-esophageal reflux disease without esophagitis; Z87.440 Personal history of urinary (tract) infections
CPT/HCPCS: 80048; 80053; 81003; 81015; 85025; 87086; 96361; 96374; 97162; 97530; 99285; J2185

== ENCOUNTER 2024-12-22 11:57 | Emergency (ER) | payer MEDICARE, BC, SELFPAY ==
[2024-12-22] VITALS (10 sets, daily range): BP systolic 120–163; BP diastolic 62–107
[2024-12-22 12:59] LABS: % Basophils 0.3 % (0-2); % Immature Granulocytes 0.7 % (0-0.5); % Lymphocytes 24.5 % (20.5-51.1); % Monocytes 10.5 % (1.7-9.3); Absolute Eosinophils 0.1 10^3/uL (0-0.7); Absolute Immature Granulocytes 0.1 10^3/uL (0-0.05); Absolute Lymphocytes 1.7 10^3/uL (1.2-3.4); Absolute Monocytes 0.7 10^3/uL (0.1-0.6); Absolute Neutrophils 4.2 10^3/uL (1.4-6.5); Hematocrit 33.8 % (37.0-47.0); Hemoglobin 10.7 g/dL (12.0-16.0); Mean Corp Hgb Conc. 31.7 g/dL (33.0-37.0); Mean Corpuscular Hgb 30.4 pg (27.0-31.0); Mean Platelet Volume 10.6 fL (7.4-10.4); Nucleated Red Blood Cells % 0 %; Platelet Count 225 10^3/uL (130-400); Red Blood Cell Count 3.52 10^6/uL (4.20-5.40); Red Cell Dist. Width 14.7 % (11.5-14.5); White Blood Cell Count 6.7 10^3/uL (4.8-10.8)
[2024-12-22 13:11] LABS: Blood Urea Nitrogen 26 mg/dl (7-17); Glucose 101 mg/dl (70-99)
[2024-12-22 13:12] LABS: ALT (SGPT) 17 U/L (0-35); AST (SGOT) 24 U/L (14-36); Albumin 4.1 g/dl (3.5-5.0); Alkaline Phosphatase 91 U/L (38-126); Calcium 9.4 mg/dl (8.4-10.2); Carbon Dioxide 17 mmol/L (22-30); Chloride 110 mmol/L (98-107); Lipase 475 U/L (23-300); Potassium 4.8 mmol/L (3.5-5.1); Sodium 138 mmol/L (135-145); Total Bilirubin 0.4 mg/dl (0.2-1.3); Total Protein 6.5 g/dl (6.3-8.2); eGFR 31.02
--- NOTE | 2024-12-22 15:06 | ED.GENMED ---
History of Present Illness
General
Chief Complaint: Abdominal Symptoms
Time Seen by Provider: 12/22/24 14:52
History of Present Illness
History of Present Illness:
89-year-old female presents to the emergency department for evaluation of persistent diarrhea for the past 2 months, initially was more intermittent however in the past 2 to 3 weeks it has been constant. She has also been treated for upper
respiratory tract infections as well as urinary tract infections with antibiotics in the past month. Distribution Engineering Technologist notes that she has a history of ESBL UTIs. Was most recently on antibiotics this month, last dose was about 5 days ago. Patient's p.o.
intake has been gradually declining, no bloody diarrhea, no reports of abdominal pain. She continues to have cough and nasal congestion.
Past History
Past History
ED Past Medical History: Cancer (basal cell carcinoma) and Other (Rosacea, eczema)
ED Past Surgical History: Cholecystectomy, Gynecological (D&C), Orthopedic (ankle fracture with an placement 2013) and Tonsilectomy
Patient has exhibited threatening behavior?: No
PSI?: No
Social History
Tobacco: Former smoker
Alcohol: Occasional
Personal:
Living: with family
Employment: Retired
Family History
Family History: Hypertension
Review of Systems
Review of Systems
Allergies reviewed?: Yes
All Other Systems: ROS reviewed and negative except as documented in HPI and ROS
Phy Exam
Physical Exam
Physical Exam:
GEN: Well appearing, NAD, WDWN
HEENT: Oral mucosa moist, no scleral icterus
Cardiac: Regular rate
Lung: No respiratory distress, no tachypnea, rhonchi and rales heard at the right base
Abdomen: Soft, mildly protuberant, nonrigid, nontender
MSK: No gross deformity or injuries
Skin: Good color, no pallor or jaundice, no rashes
Neuro: AO x3, moves all extremities freely
Psych: Calm, cooperative
Course
Orders/Labs/Results
Orders:
Orders
12/22/24 12:31
Complete Blood Count/With Diff Urgent
Comprehensive Metabolic Panel Urgent
Lipase Urgent
12/22/24 15:05
CT Abd/Pel (IV only)-DH only Urgent
Comment:
Reason For Exam: diarrhea
Lactated Ringers [Lr] 1,000 ml IV BOLUS
12/22/24 15:06
CR Chest - 2 Views Urgent
Comment:
Reason For Exam: coughing
12/22/24 17:15
Straight cath- Treatment ONCE
12/22/24 17:24
Urinalysis Reflex To Culture Urgent
Date Specimen was Collected: 12/22/24
Time Specimen was Collected: 17:13
Urine Microscopic Reflex Cult Urgent
Urine Culture Urgent
MELISSA Source: U
Specimen Description:
Date Specimen was Collected: 12/22/24
Time Specimen was Collected: 17:13
Abnormal Lab Results
12/22/24 12/22/24
12:31 17:24
RBC 3.52 L 10^6/uL
(4.20-5.40)
Hgb 10.7 L g/dL
(12.0-16.0)
Hct 33.8 L %
(37.0-47.0)
MCHC 31.7 L g/dL
(33.0-37.0)
RDW 14.7 H %
(11.5-14.5)
MPV 10.6 H fL
(7.4-10.4)
Abs Immat Gran (auto) 0.1 H 10^3/uL
(0-0.05)
Absolute Monos (auto) 0.7 H 10^3/uL
(0.1-0.6)
Immature Gran % 0.7 H %
(0-0.5)
Monocytes % 10.5 H %
(1.7-9.3)
Chloride 110 H mmol/L
(98-107)
Carbon Dioxide 17 L mmol/L
(22-30)
BUN 26 H mg/dl
(7-17)
Creatinine 1.6 H mg/dL
(0.6-1.0)
Glucose 101 H mg/dl
(70-99)
Lipase 475 H U/L
(23-300)
Ur Occult Blood Reflex 4+ A
(Negative)
Leukocyte Esterase Rfl 3+ A
(Negative)
Urine RBC 16-20 A /HPF
(0-2)
Urine Bacteria (Reflex) Few A
(Negative)
Urine Albumin (Reflex) 2+ A
(Neg - Trace)
12/22/24 12:31
12/22/24 12:31
Vital Signs
Initial and Last Documented VS:
Initial Vital Signs
Temp Pulse Resp BP Pulse Ox
98.0 F 80 16 122/77 98
12/22/24 12:13 12/22/24 12:13 12/22/24 12:13 12/22/24 12:13 12/22/24 12:13
Last Documented Vital Signs
Temp Pulse Resp BP Pulse Ox
98.0 F 103 19 139/62 97
12/22/24 12:13 12/22/24 18:15 12/22/24 18:15 12/22/24 18:00 12/22/24 18:15
MDM/Problems Addressed
MDM/Problems Addressed:
Unclear cause the patient's diarrheal illness. This seems to be ongoing even longer in duration than her recent antibiotic use making C. difficile less likely however the patient had no bowel movements in the ED in order to send for stool testing.
Interestingly her CT shows significant bladder wall thickening suggestive of cystitis however urinalysis not highly suspicious. Will await urine culture and observe off antibiotics as the patient has no fevers or leukocytosis, in particular given
her history of ESBL it would be walker to avoid use of excessive antibiotics. I have recommended she follow-up with GI as an outpatient, information provided to GI office for follow-up purposes. Patient was offered admission due to her reported
weakness however she prefers discharge home which I feel to be reasonable at this time. She was given 1 L crystalloid fluids intravenously and feels well enough to be discharged
*Critical Care Note
Total Time (30-74mins, 75-104mins- exclusive of procedures): Not Applicable
ED Attending Note
-
Portions of this chart may have been created with voice recognition software.� Occasional wrong word or��sound alike� substitutions may have occurred due to the inherent limitations of voice recognition software.
Discharge Plan
Departure
Patient Disposition: Home (Routine Discharge)
Date of Disposition: 12/22/24
Time of Disposition: 18:35
Patient with high blood pressure during this ER visit?: No
Discharge Problem:
Diarrhea
Instructions: Diarrhea in teens and adults
Prescriptions:
New
phenazopyridine 100 mg tablet
100 mg PO TID PRN (Reason: Pain) Qty: 6 0RF
No Action
pantoprazole 40 mg tablet,delayed release (DR/EC)
40 mg PO DAILY
methenamine hippurate 1 gram tablet
1 g PO BID
rosuvastatin 10 mg tablet
10 mg PO DAILY
carvedilol 3.125 mg Tablet
3.125 mg PO BID Qty: 60 0RF
mycophenolate mofetil 500 mg tablet
500 mg PO BID
aspirin 81 mg Tablet,Chewable
81 mg PO DAILY
melatonin 5 mg Tablet
7.5 mg PO HS
Systane Balance 0.6 % Drops
3 drp LEFT EYE .SEE BELOW
Patient Comments:
12/18/2023, per pt. and pt.'s friend, pt. takes these eye drops between 2-3 times a day.
Systane Balance 0.6 % Drops
1 - 2 drp RIGHT EYE .SEE BELOW
Patient Comments:
12/18/2023, per pt. and pt.'s friend, pt. takes these eye drops between 2-3 times a day.
ascorbic acid (vitamin C) [Vitamin C] 125 mg Tablet,Chewable
125 mg PO BID
Caltrate 600 plus D 600 mg-20 mcg (800 unit) Tablet,Chewable
1 tab PO BID
famotidine 20 mg tablet
10 mg PO Q48H@2200
sennosides-docusate sodium [Senokot-S] 8.6-50 mg Tablet
1 tab PO DAILY
Referrals:
Delio Bryson, DO [Family Provider] -
Interventions
Interventions:
*Risk Screen - Suicide Last Done: 12/22/24 12:17
*General Assessment Last Done: 12/22/24 12:13
*Neglect/Abuse Screening Last Done: 12/22/24 15:20
ED- Fall Risk Assessment Last Done: 12/22/24 15:20
*ED COVID-19 Vaccine History Last Done: 12/22/24 12:13
*Nursing Disposition Last Done: 12/22/24 18:50
[facility]-Kvqdzbtox[facility] Assessment Last Done: 12/22/24 15:20
Discharge Date and Time
Print Language: KINYARWANDA
[2024-12-22] MEDS: LR 1000 IV (15:11)
[2024-12-22 17:46] LABS: Urine Albumin 2+ (Neg - Trace); Urine Bilirubin Negative (Negative); Urine Character Clear (Clear); Urine Color Yellow; Urine Glucose Negative (Negative); Urine Ketone Negative (Negative); Urine Leukocyte 3+ (Negative); Urine Nitrite Negative (Negative); Urine Occult Blood 4+ (Negative); Urine Urobilinogen Negative (Neg - 1+)
[2024-12-22 18:03] LABS: Urine Squamous Cell 0-2 /LPF (Few)
[2024-12-22 18:04] LABS: Urine Bacteria Few (Negative); Urine Red Blood Cell 16-20 /HPF (0-2)
== END 2024-12-22 19:28 | disposition home or self-care (01) ==
LOC: EMR 11:57
PROVIDERS: Physician Assistant; Student in an Organized Health Care Education/Training Program; EMERGENCY PHYSICIAN Emergency Medicine; FAMILY PHYSICIAN Internal Medicine
DX: R19.7 Diarrhea, unspecified (principal); Z85.828 Personal history of other malignant neoplasm of skin; Z90.49 Acquired absence of other specified parts of digestive tract; Z87.891 Personal history of nicotine dependence; Z87.440 Personal history of urinary (tract) infections; Z86.19 Personal history of other infectious and parasitic diseases
CPT/HCPCS: 99284; 96360; 71046; 74177; 80053; 81003; 81015; 83690; 85025; 87086; Q9967

== ENCOUNTER 2025-01-15 15:25 | Emergency (ER) | payer MEDICARE, BC, SELFPAY ==
[2025-01-15 15:27] VITALS: BP 142/89
--- NOTE | 2025-01-15 15:50 | ED.GENMED ---
History of Present Illness
General
Chief Complaint: Skin Surface Trauma
Source: patient
Exam Limitations: none
Time Seen by Provider: 01/15/25 15:49
Nursing documentation reviewed up to this point in time: agreed with
History of Present Illness
History of Present Illness:
This is an 89 y/o female with a past medical history of htn, anemia, anxiety, who presents to the ER today with concerns skin tear to her right forearm following a fall. She lives at home with her and has help from home health aides. She is
present in the ER with her daughter. She reports that she was going to bend down and sit on the toilet and grab a toilet paper role when she lost her balance and fell foreword, scrapping her arm on the floor and bumping her head on the ground. She
did not loose consciousness. Other than aspirin, she does not take any blood thinners. She denies any other injuries. She denies neck pain. She denies chest pain, shortness of breath.
Past History
Past History
ED Past Medical History: Cancer (basal cell carcinoma) and Other (Rosacea, eczema)
ED Past Surgical History: Cholecystectomy, Gynecological (D&C), Orthopedic (ankle fracture with an placement 2013) and Tonsilectomy
Patient has exhibited threatening behavior?: No
PSI?: No
Social History
Tobacco: Former smoker
Alcohol: Occasional
Personal:
Living: with family
Employment: Retired
Family History
Family History: Hypertension
Review of Systems
Review of Systems
All Other Systems: ROS reviewed and negative except as documented in HPI and ROS
Phy Exam
Physical Exam
Physical Exam:
General: Patient is well appearing and in no acute distress
Skin: Warm and dry, type 2b and 3 skin tears noted to right posterior forearm
Head: Small area of ecchymosis noted to right forehead. No tenderness to palpation of the facial bones. TMJ joints intact bilaterally.
Eyes: Sclera non-icteric. EOMs intact.
Neck: No tenderness to palpation of the cervical spine or paraspinal muscles.
Cardiac: Mild tachycardia noted otherwise regular rhythm, no murmurs, no tenderness to palpation of the external chest wall.
Pulm: Normal respiratory effort, no wheezes, rales, or rhonchi
Musculoskeletal: Tenderness to palpation of the right forearm and right wrist.
Abdomen: No abdominal tenderness to palpation
Neuro: CN II-XII intact, no focal neurologic deficits.
Psychiatric: Appropriate mood and affect.
Course
Orders/Labs/Results
Orders:
Orders
01/15/25 16:28
CT Head W/o Iv Contrast Urgent
Comment:
Reason For Exam: head strike
Acetaminophen [Tylenol] 1,000 mg PO NOW STA
CR Forearm - Right 2 View Urgent
Comment:
Reason For Exam: right arm pain
CR Wrist - Right Min 3 Views Urgent
Comment:
Reason For Exam: right wrist pain following fall
01/15/25 17:03
Lidocaine/Epinephrine/Tetracai [Let Topical Anesthetic Gel] 3 ml TOPICAL NOW STA
01/15/25 17:09
Lidocaine/Epinephrine/Tetracai [Let Topical Anesthetic Gel] 3 ml TOPICAL NOW STA
01/15/25 18:41
Tetanus/Diphth/Acelpertussis [Adacel] 0.5 ml IM .ONCE ONE
Vital Signs
Initial and Last Documented VS:
Initial Vital Signs
Temp Pulse Resp BP Pulse Ox
98.4 F 103 18 142/89 98
01/15/25 15:27 01/15/25 15:27 01/15/25 15:27 01/15/25 15:27 01/15/25 15:27
Last Documented Vital Signs
Temp Pulse Resp BP Pulse Ox
98.4 F 78 18 111/66 96
01/15/25 15:27 01/15/25 16:15 01/15/25 15:27 01/15/25 18:55 01/15/25 19:00
MDM/Problems Addressed
Differential Diagnosis Includes:
ddx include skin tear, avulsion, concussion, epidural hematoma, subdural hematoma, subarachnoid hemorrhage
MDM/Problems Addressed:
This is an 89 y/o female with a past medical history of htn, anemia, anxiety, who presents to the ER today with concerns skin tear to her right forearm following a fall. When she fell, she also hit her head. She denies any headache or neck pain. She
has not had any loss of consciousness. CT head negative or any acute intracranial abnormality, forearm free of fracture. Skin tears were numbed with LET, fully dried, and dermabond coating was applied to aid in continued hemostasis as well as to
create a wound cover for initial stages of healing. Dressing applied over that. Wound care precautions discussed, return precautions discussed, patient stable for discharge.
*Critical Care Note
Total Time (30-74mins, 75-104mins- exclusive of procedures): Not Applicable
ED Attending Note
-
Portions of this chart may have been created with voice recognition software.� Occasional wrong word or��sound alike� substitutions may have occurred due to the inherent limitations of voice recognition software.
Discharge Plan
Departure
Patient Disposition: Home (Routine Discharge)
Date of Disposition: 01/15/25
Time of Disposition: 18:36
Patient with high blood pressure during this ER visit?: Yes
Condition: Good
Discharge Problem:
Fall, Skin tear
Instructions: Preventing falls in adults, Wound care - ED discharge instructions, [facility]
Prescriptions:
No Action
pantoprazole 40 mg tablet,delayed release (DR/EC)
40 mg PO DAILY
methenamine hippurate 1 gram tablet
1 g PO BID
rosuvastatin 10 mg tablet
10 mg PO DAILY
carvedilol 3.125 mg Tablet
3.125 mg PO BID Qty: 60 0RF
mycophenolate mofetil 500 mg tablet
500 mg PO BID
aspirin 81 mg Tablet,Chewable
81 mg PO DAILY
melatonin 5 mg Tablet
7.5 mg PO HS
Systane Balance 0.6 % Drops
3 drp LEFT EYE .SEE BELOW
Patient Comments:
12/18/2023, per pt. and pt.'s friend, pt. takes these eye drops between 2-3 times a day.
Systane Balance 0.6 % Drops
1 - 2 drp RIGHT EYE .SEE BELOW
Patient Comments:
12/18/2023, per pt. and pt.'s friend, pt. takes these eye drops between 2-3 times a day.
ascorbic acid (vitamin C) [Vitamin C] 125 mg Tablet,Chewable
125 mg PO BID
Caltrate 600 plus D 600 mg-20 mcg (800 unit) Tablet,Chewable
1 tab PO BID
famotidine 20 mg tablet
10 mg PO Q48H@2200
sennosides-docusate sodium [Senokot-S] 8.6-50 mg Tablet
1 tab PO DAILY
phenazopyridine 100 mg tablet
100 mg PO TID PRN (Reason: Pain) Qty: 6 0RF
Referrals:
Delio Bryson DO [Family Provider] -
Activity Restrictions/Additional Instructions:
Your CAT scan of the head did not show any acute intracranial abnormality. Your x-ray of the wrist and forearm did not show any evidence of acute fracture or dislocation. You can take Motrin Tylenol as needed for pain.
I recommend keeping a dressing in place on your arm for 24 hours. After 24 hours, you can change the dosing to once daily.
PLEASE RETURN EMERGENCY DEPARTMENT SHOULD YOU DEVELOP PURULENT DRAINAGE FROM THE WOUND, SURROUNDING REDNESS, INCREASING PAIN, FEVERS OR CHILLS, CHEST PAIN, SHORTNESS OF BREATH, OR ANY OTHER SIGNS OR SYMPTOMS WORRISOME TO YOU.
Interventions
Interventions:
*Risk Screen - Suicide Last Done: 01/15/25 15:27
*General Assessment Last Done: 01/15/25 15:27
*Neglect/Abuse Screening Last Done: 01/15/25 16:02
*ED- Fall Risk Assessment Last Done: 01/15/25 15:27
*ED COVID-19 Vaccine History Last Done: 01/15/25 15:27
*Nursing Disposition Last Done: 01/15/25 19:10
ED-Skin Assessment Last Done: 01/15/25 16:10
Discharge Date and Time
Discharge Date/Time: 01/15/25 19:10
Print Language: GUYANESE
[2025-01-15 16:01] VITALS: BP 119/99
[2025-01-15 16:02] VITALS: BMI 25.4
[2025-01-15] MEDS: TYLENOL 1000 MG PO (16:57)
[2025-01-15 17:00] VITALS: BP 120/85
[2025-01-15] MEDS: LET TOPICAL ANESTHETIC GEL 3 ML TOPICAL (17:07)
[2025-01-15 18:55] VITALS: BP 111/66
[2025-01-15] MEDS: ADACEL 0.5 ML IM (19:02)
== END 2025-01-15 19:10 | disposition home or self-care (01) ==
LOC: EMR 15:25
PROVIDERS: EMERGENCY PHYSICIAN Student in an Organized Health Care Education/Training Program; FAMILY PHYSICIAN Internal Medicine
DX: S51.811A Laceration without foreign body of right forearm, initial encounter (principal); S00.83XA Contusion of other part of head, initial encounter; W01.0XXA Fall on same level from slipping, tripping and stumbling without subsequent striking against object, initial encounter; I10 Essential (primary) hypertension; L71.9 Rosacea, unspecified; F41.9 Anxiety disorder, unspecified; M19.90 Unspecified osteoarthritis, unspecified site; D50.9 Iron deficiency anemia, unspecified; F10.11 Alcohol abuse, in remission; Z85.828 Personal history of other malignant neoplasm of skin; Z86.718 Personal history of other venous thrombosis and embolism; Z87.01 Personal history of pneumonia (recurrent); Z87.891 Personal history of nicotine dependence; Z90.49 Acquired absence of other specified parts of digestive tract
CPT/HCPCS: 99284; 12001; 70450; 73090; 73110; 90715

== ENCOUNTER 2025-01-19 09:51 | Inpatient (IN) | payer MEDICARE, BC, SELFPAY ==
[2025-01-18 11:55] VITALS: BP 108/60
[2025-01-18 12:46] LABS: % Basophils 0.1 % (0-2); % Eosinophils 0.1 % (0-6); % Immature Granulocytes 0.5 % (0-0.5); % Lymphocytes 14.6 % (20.5-51.1); % Monocytes 5.8 % (1.7-9.3); % Neutrophils 78.9 % (42.2-75.2); Absolute Lymphocytes 1.1 10^3/uL (1.2-3.4); Absolute Monocytes 0.5 10^3/uL (0.1-0.6); Absolute Neutrophils 6.2 10^3/uL (1.4-6.5); Hemoglobin 10.6 g/dL (12.0-16.0); Mean Corp Hgb Conc. 32.1 g/dL (33.0-37.0); Mean Corpuscular Hgb 30.5 pg (27.0-31.0); Mean Corpuscular Volume 94.8 fL (81.0-99.0); Nucleated Red Blood Cells % 0 %; Platelet Count 186 10^3/uL (130-400); Red Blood Cell Count 3.48 10^6/uL (4.20-5.40); Red Cell Dist. Width 15.8 % (11.5-14.5); White Blood Cell Count 7.8 10^3/uL (4.8-10.8)
[2025-01-18 12:57] LABS: Lactic Acid 1.4 mmol/L (0.7-2.0)
[2025-01-18 12:59] LABS: ALT (SGPT) 31 U/L (0-35); AST (SGOT) 43 U/L (14-36); Albumin 3.9 g/dl (3.5-5.0); Alkaline Phosphatase 71 U/L (38-126); Blood Urea Nitrogen 32 mg/dl (7-17); Calcium 9.1 mg/dl (8.4-10.2); Carbon Dioxide 19 mmol/L (22-30); Chloride 110 mmol/L (98-107); Glucose 132 mg/dl (70-99); Lipase 676 U/L (23-300); Potassium 4.2 mmol/L (3.5-5.1); Sodium 139 mmol/L (135-145); Total Bilirubin 0.5 mg/dl (0.2-1.3); Total Protein 6.3 g/dl (6.3-8.2); eGFR 33.52
[2025-01-18 13:04] LABS: COVID-19 Antigen Positive (Negative)
[2025-01-18 13:12] LABS: Troponin I 0.095 ng/ml
--- NOTE | 2025-01-18 13:27 | ED.GENMED ---
History of Present Illness
General
Chief Complaint: Failure to Thrive
Source: patient and childcare aide
Exam Limitations: none
Time Seen by Provider: 01/18/25 13:05
Nursing documentation reviewed up to this point in time: agreed with
History of Present Illness
History of Present Illness:
89-year-old female presents to the emergency department due to chest pain, shortness of breath, diarrhea, fever and chills. Last week she was diagnosed with pneumonia and started on antibiotics.
Past History
Past History
ED Past Medical History: Cancer (basal cell carcinoma) and Other (Rosacea, eczema)
ED Past Surgical History: Cholecystectomy, Gynecological (D&C), Orthopedic (ankle fracture with an placement 2012) and Tonsilectomy
Patient has exhibited threatening behavior?: No
PSI?: No
Social History
Tobacco: Former smoker
Alcohol: Occasional
Personal:
Living: with family
Employment: Retired
Family History
Family History: Hypertension
Review of Systems
Review of Systems
Allergies reviewed?: Yes
All Other Systems: Not applicable
Constitutional: Reports fever
EENT: Reports no symptoms
Respiratory: Reports cough and trouble breathing
Cardiac: Reports no symptoms
ABD/GI: Reports diarrhea
: Reports no symptoms
Musculoskeletal: Reports no symptoms
Skin: Reports no symptoms
Neurological: Reports no symptoms
Endocrine: Reports no symptoms
Hematologic/Lymphatic: Reports no symptoms
Psychiatric: Reports no symptoms
Phy Exam
Physical Exam
Physical Exam:
Physical Exam
General: Temperature 98.5 oral
Neck: supple. no meningeal signs. normal posterior pharynx
Heart: s1/s2 tachycardia, no murmur. equal radial
pulses.
HEENT: Pupils equal round reactive to light, EOMI
Lungs: Mild respiratory distress. Wheezing/rhonchi bilaterally
Abdomen: normal bowel sounds. not tender. no CVAT
Neuro: alert and oriented to person and place. no focal neurological deficits cranial nerves II through XII intact
Skin: no rash, wound on right forearm with dressing in place
Psychiatric: well kept. interactive and cooperative
Extremities: no edema. no calf tenderness. negative homans. good distal pulses
Course
Orders/Labs/Results
Orders:
Orders
01/18/25 12:00
Electrocardiogram (*1) Urgent
Reason for Study: Chest Pain
EKG- Treatment ONCE
CR Chest - 2 Views Urgent
Comment:
Reason For Exam: cough
01/18/25 12:24
COVID-19 Antigen Urgent
Source: Nasal Swab
Influenza A+B Rapid Molecular Urgent
MELISSA Source: Nasal Swab
Specimen Description:
01/18/25 12:29
Complete Blood Count/With Diff Urgent
Comprehensive Metabolic Panel Urgent
Lactic Acid Urgent
Lipase Urgent
NT-proBNP Urgent
Comment: ADD ON
Troponin I Urgent
01/18/25 12:31
ECG [Electrocardiogram (*1)] Urgent
Reason for Study: Chest Pain
Other Reason for Exam: repeat
01/18/25 12:32
EKG- Treatment ONCE
01/18/25 13:26
Add On- LAB Urgent
Tests Added?: pro-bnp
01/18/25 13:34
Aspirin Chewable [Low Strength Aspirin] 324 mg PO NOW STA
01/18/25 14:07
Shoulder, Right 2 Views [CR Shoulder - Right Min 2 View] Urgent
Comment:
Reason For Exam: fall, right shoulder pain
Abnormal Lab Results
01/18/25 01/18/25
12:24 12:29
RBC 3.48 L 10^6/uL
(4.20-5.40)
Hgb 10.6 L g/dL
(12.0-16.0)
Hct 33.0 L %
(37.0-47.0)
MCHC 32.1 L g/dL
(33.0-37.0)
RDW 15.8 H %
(11.5-14.5)
MPV 11.0 H fL
(7.4-10.4)
Absolute Lymphs (auto) 1.1 L 10^3/uL
(1.2-3.4)
Neutrophils % 78.9 H %
(42.2-75.2)
Lymphocytes % 14.6 L %
(20.5-51.1)
Chloride 110 H mmol/L
(98-107)
Carbon Dioxide 19 L mmol/L
(22-30)
BUN 32 H mg/dl
(7-17)
Creatinine 1.5 H mg/dL
(0.6-1.0)
Glucose 132 H mg/dl
(70-99)
AST 43 H U/L
(14-36)
Troponin I 0.095 H* ng/ml
Lipase 676 H U/L
(23-300)
SARS-CoV-2 Antigen Positive A
(Negative)
01/18/25 12:29
01/18/25 12:29
Vital Signs
Initial and Last Documented VS:
Initial Vital Signs
Temp Pulse Resp BP Pulse Ox
98.5 F 77 16 108/60 94
01/18/25 11:55 01/18/25 11:55 01/18/25 11:55 01/18/25 11:55 01/18/25 11:55
Last Documented Vital Signs
Temp Pulse Resp BP Pulse Ox
98.5 F 87 24 108/60 97
01/18/25 11:55 01/18/25 15:08 01/18/25 15:08 01/18/25 11:55 01/18/25 15:08
MDM/Problems Addressed
Differential Diagnosis Includes:
Failure to thrive, CHF, influenza, pneumonia
MDM/Problems Addressed:
89-year-old female with CHF exacerbation, influenza, COVID, failure to thrive. Admit to hospitalist.
Chronic conditions affecting care: Cardiomyopathy
*Radiology
Radiology exam reviewed: radiology read reviewed (Chest x-ray shows bilateral pleural effusion, shoulder x-ray right, no signs of fracture, possible rotator cuff)
*Pulse Oximetry
Patient hypoxic: no
*EKG
Interpreted by ED Provider?: Yes
EKG Intrepretation Date: 01/18/25
EKG Intrepretation Time: 12:36
Interpretation: abnormal
Comparison EKG: changes noted
Heart Rate: 87
Rate: normal
Rhythm: a-fib
[place]: normal axis
Interval: normal interval
Ischemia: T-wave inversion
*Foam Rubber Curer Interpretation
Rate: tachycardiac
Interpretation: abnormal
Heart Rate: 117
Rhythm: a-fib
*Critical Care Note
Total Time (30-74mins, 75-104mins- exclusive of procedures): Not Applicable
Data Reviewed
Review of Other/Old Records Reveals: Labs (Creatinine 1.6 on 12/22/2024)
Source: records
Further Testing Considered But Not Given:
CT chest not indicated
Patient Management
Social determinants of health affecting care: Living situation
Discussion with other providers: Hospitalist
Escalation/DeEscalation of care consider admission/obs:
Admit indicated
ED Attending Note
-
Portions of this chart may have been created with voice recognition software.� Occasional wrong word or��sound alike� substitutions may have occurred due to the inherent limitations of voice recognition software.
Discharge Plan
Departure
Patient Disposition: Admit
Date of Disposition: 01/18/25
Time of Disposition: 14:43
Admit to: Telemetry
Presentation/result/management discussed w/ accepting MD/DO: Hospitalist
Patient with high blood pressure during this ER visit?: No
Condition: Fair
Covid-19: Confirmed COVID-19
Discharge Problem:
COVID-19, Influenza A, Acute exacerbation of CHF (congestive heart failure)
Prescriptions:
No Action
pantoprazole 40 mg tablet,delayed release (DR/EC)
40 mg PO DAILY
methenamine hippurate 1 gram tablet
1 g PO BID
rosuvastatin 10 mg tablet
10 mg PO DAILY
carvedilol 3.125 mg Tablet
3.125 mg PO BID Qty: 60 0RF
mycophenolate mofetil 500 mg tablet
500 mg PO BID
aspirin 81 mg Tablet,Chewable
81 mg PO DAILY
melatonin 5 mg Tablet
7.5 mg PO HS
Systane Balance 0.6 % Drops
3 drp LEFT EYE BID
Patient Comments:
Systane Balance 0.6 % Drops
1 - 2 drp RIGHT EYE BID
ascorbic acid (vitamin C) [Vitamin C] 125 mg Tablet,Chewable
125 mg PO BID
Caltrate 600 plus D 600 mg-20 mcg (800 unit) Tablet,Chewable
1 tab PO BID
famotidine 20 mg tablet
10 mg PO Q48H@2200
sennosides-docusate sodium [Senokot-S] 8.6-50 mg Tablet
1 tab PO DAILY
phenazopyridine 100 mg tablet
100 mg PO TID PRN (Reason: Pain) Qty: 6 0RF
Referrals:
UNKNOWN - PT DOES,NOT KNOW [Family Provider] -
Discharge Date and Time
Print Language: UZBEK
[2025-01-18] MEDS: LOW STRENGTH ASPIRIN 324 MG PO (14:00)
[2025-01-18 14:08] LABS: NT-proBNP 11500 pg/ml
--- NOTE | 2025-01-18 14:46 | HPS.HSE ---
Family Physician
-
Family Physician: NOT KNOW UNKNOWN - PT DOES
Chief Complaint
-
cough
History of Present Illness
Patient is a 89-year-old female with past medical history significant for hypertension, hyperlipidemia, CKD stage III, anemia of chronic disease, dementia and congestive heart failure who presented to [facility] ED for evaluation of
shortness of breath and productive cough. Patient daughter at bedside to assist with HPI. Patient started with URI symptoms approximately 1 month ago with cough and mild shortness of breath. Since then patient has seen primary care and urgent care
for symptoms. Last Friday, January 12 her CXR at urgent care showed left lower lobe pneumonia where urgent care prescribed oral antibiotics. Patient completed z-pack 2 days ago and started Amoxicillin as instructed. Daughter reports despite
antibiotic treatment cough and shortness of breath have increased. She has had associated generalized weakness sustaining a fall 3 days ago with skin tear to right forearm. Cough is reported as productive in small amounts of mucus, shortness of
breath is observed at rest and it is reported she had subjective fever when she was hot to touch and had become diaphoretic when sleeping. Patient also reports chronic diarrhea since August 2024, being seen by GI out patient.
Medical History
Past Medical History
Past Medical History: Reports Other
Additional Past Medical History:
hypertension
hyperlipidemia
ANCA associated vasculitis
CKD stage III
anemia of chronic disease
dementia
congestive heart failure
rosacea
eczema
basal cell carcinoma
Past Surgical History: Reports Other
Additional Past Surgical History:
uterine prolapse surgery
Cholecystectomy
D&C
ankle fracture with an placement 2012
Tonsillectomy
Social History
Tobacco: Former Smoker
Alcohol: Former (sober for 2 years )
Drug: None
Personal:
Living: With Family (and caregivers 24-hours)
Employment: Retired
Family History
Family History: Not pertinent
Allergies / Home Medications
Allergies reflects when Allergies were last updated in [phone].
Home Medications with original date entered in [phone]
Allergy/Medication List:
Allergies
Allergy/AdvReac Type Severity Reaction Status Date / Time
erythromycin base Allergy Unknown Verified 01/15/25 15:28
[Erythromycin Base]
Home Medications
pantoprazole 40 mg tablet,delayed release 40 mg PO DAILY Gastrointestinal issue 08/09/22
methenamine hippurate 1 gram tablet 1 g PO BID Urinary Issue 06/27/23
rosuvastatin 10 mg tablet 10 mg PO DAILY@2000 High Cholesterol 06/27/23
mycophenolate mofetil 500 mg tablet 500 mg PO BID Autoimmune Disorder 11/26/23
aspirin 81 mg chewable tablet 81 mg PO DAILY Blood Clot Prevention/Tx 12/18/23
calcium 600 mg (as carbonate)-vit D3 20 mcg (800 unit) chewable tablet (Caltrate plus D) 1 tab PO BID Supplement 12/18/23
famotidine 20 mg tablet 10 mg PO Q48H@2200 Gastrointestinal Issue 12/18/23
melatonin 5 mg tablet 10 mg PO HS Sleep 12/18/23
acetaminophen 500 mg tablet (Tylenol Extra Strength) 500 mg PO Q6H PRN mild pain 01/18/25
amoxicillin 500 mg capsule 1,000 mg PO TID Infection 01/18/25
benzonatate 200 mg capsule 200 mg PO TIDPRN PRN cough 01/18/25
cholestyramine (with sugar) 4 gram powder for susp in a packet 4 g PO DAILY@1400 Loose Stools 01/18/25
dextran 70-hypromellose eye drops in a dropperette (Artificial Tears (PF) drops in a dropperette) 1 drp BOTH EYES QIDPRN PRN Dry eye 01/18/25
ferrous sulfate 325 mg (65 mg iron) tablet (iron) 325 mg PO DAILY Urinary Issue 01/18/25
latanoprost 0.005 % eye drops 1 drp BOTH EYES HS Eye Condition 01/18/25
loratadine 10 mg tablet (Claritin) 10 mg PO DAILY ll 01/18/25
sertraline 50 mg tablet 50 mg PO DAILY Mental Health 01/18/25
valacyclovir 500 mg tablet 500 mg PO MOWEFR@0800 prophylaxis 01/18/25
vit C 250 mg-vit E 90 mg-zinc 40 mg-copper 1 ix-auacom-ezilug capsule (PreserVision AREDS-2) 1 tab PO BID Supplement 01/18/25
Review of Systems
-
History Source: Patient
Constitutional: Reports Fever, Fatigue, Night Sweats and Chills
EENT: Reports No Symptoms
Respiratory: Reports Cough and Trouble Breathing
Cardiac: Reports No Symptoms
Abdomen/GI: Reports No Symptoms
: Reports No Symptoms
Musculoskeletal: Reports Joint Pain (right should pain and decreased ROM )
Skin: Reports No Symptoms
Neurological: Reports No Symptoms
Endocrine: Reports No Symptoms
Hematologic/Lymphatic: Reports No Symptoms
Psych: Reports No Symptoms
Physical Exam
Vital Signs
Vital Signs
Temp Pulse Resp BP Pulse Ox
98.5 F 77 16 108/60 94
01/18/25 11:55 01/18/25 11:55 01/18/25 11:55 01/18/25 11:55 01/18/25 11:55
Physical Exam
General: Well Developed, Well Nourished, No Apparent Distress, Comfortable and Conversant
HEENT: NormoCephalic, Moist mucous membranes, Atraumatic, [place] Conjunctivae, Nose Appears Normal and Ears Appear Normal
Respiratory: Clear, Wheezes, Rhonchi and Non Labored Respirations
Cardiac: S1/S2 and Irregular Rhythm; No Murmur, Rub or Gallop
Breast: Deferred by me
GI: Soft, Non Tender, Non Distended and Normal Bowel Sounds; No Organomegaly
Rectal: Deferred by Provider
Genito-urinary: Deferred by me
Musculoskeletal: No Clubbing, No Cyanosis and No Edema
Skin: Warm and IV/Catheter Site; No Rash
Neuro: Awake, Alert and Nonfocal/grossly intact
Psych: Calm
Laboratory Results
-
01/18/25 12:
01/18/25:
Laboratory Results
Lactic Acid 1.4 mmol/L (0.7-2.0) 01/18/25 12:
Total Bilirubin 0.5 mg/dl (0.2-1.3) 01/18/25:
AST 43 U/L (14-36) H 01/18/25:
ALT 31 U/L (0-35) 01/18/25:
Alkaline Phosphatase 71 U/L (38-126) 01/18/25:
Troponin I 0.095 ng/ml H* 01/18/25 12:
Lipase 676 U/L (23-300) H 01/18/25:
Data Reviewed
-
Diagnostic Radiology: Report Reviewed by me (CXR: Trace pleural effusion blunting the posterior costophrenic angles. Otherwise, no acute cardiopulmonary process appreciated.) and Other (R shoulder: Limited by positioning, as described. Findings
likely represent progressive rotator cuff injury/tear. As far as visualized, no radiographically demonstrable fracture. Angulation of the scapulohumeral arch, which has been described in posterior dislocation, though dislocation is felt )
Medical Tests (Nuc Med, Echo, EKG etc): Report Reviewed by me (EKG: Sinus rhythm with PACs SEPTAL INFARCT (CITED ON OR BEFORE 18-JAN-2025) ST and T WAVE ABNORMALITY, CONSIDER INFERIOR ISCHEMIA ST and T WAVE ABNORMALITY, CONSIDER ANTEROLATERAL
ISCHEMIA ABNORMAL ECG)
Lab Data: Labs Reviewed by me (WBC 7.8, Neut 78.9, BUN 32, Creat 1.5, Trop 0.095, Covid positive, Flu A positive )
Impression/Plan
-
IMPRESSION/PLAN:
#acute bronchitis
recent abx treatment for pneumonia
WBC 7.8, neut 78.9
Influenza: A positive
Covid: positive
CXR: Trace pleural effusion blunting the posterior costophrenic angles. Otherwise, no acute cardiopulmonary process appreciated.
EKG: Sinus rhythm with PACs
SEPTAL INFARCT (CITED ON OR BEFORE 18-JAN-2025)
ST and T WAVE ABNORMALITY, CONSIDER INFERIOR ISCHEMIA
ST and T WAVE ABNORMALITY, CONSIDER ANTEROLATERAL ISCHEMIA
- Admit to telemetry
- continue amoxicillin as ordered out patient
- supportive care
#acute heart failure exacerbation
#congestive heart failure
#nonischemic myocardial injury 2/2 infection
BNP 22377, trop 0.095
ECHO (04/30/2023): Normal left ventricular size, wall thickness and systolic function. No regional wall motion abnormalities are seen. Estimated ejection fraction is 50-55%. Normal diastolic function.
Normal right ventricular size and function.
Aortic sclerosis without stenosis.
- daily weights
- I & Os
- continue aspirin
- trend troponin
#mechanical fall
s/p fall Friday at home with right shoulder pain and right forearm skin tear
Rt shoulder x-ray: Limited by positioning, as described.
Findings likely represent progressive rotator cuff injury/tear.
As far as visualized, no radiographically demonstrable fracture.
Angulation of the scapulohumeral arch, which has been described in posterior dislocation, though dislocation is felt to be unlikely, unless there is significant clinical concern.
- patient to follow up out patient with ortho
- consult wound care
#hyperlipidemia
- continue rosuvastatin
#ANCA associated vasculitis
follows out patient with rheumatology
- continue mycophenolate mofetil
#GERD
- continue famotidine and pantoprazole
#CKD stage III
BUN 32, Creat 1.5
#anemia of chronic disease
hgb 10.6, hct 33.0
#dementia
#depression
- continue sertraline
#hypertension
Code status: DNR
DVT prophylaxis: heparin sq
--- NOTE | 2025-01-18 16:01 | W.PN.UPDATE ---
Update Note
Progress Note Update
This is an addendum to H&P written by Mary Hernandez on 01/18/2025. Patient seen and examined independently with LINE CLEANER.
89-year-old female past medical history of ESBL Klebsiella UTI, uterine prolapse status post surgery, hyperlipidemia, hypertension, ANCA associated vasculitis, CKD 3, presenting with symptoms of cough, shortness of breath for the past month.
Treated with azithromycin course and then started Augmentin 2 days ago. Had a fall 4 days ago onto her right forearm with a bleeding laceration for which she came to the ER. Also complaining of right shoulder pain.
Chronic diarrhea since August for which she has been seeing GI.
No edema or weight gain.
Vital signs normal. 94% room air.
Labs show creatinine of 1.5 at baseline. Cardiac BNP of 11,000. Troponin 0.095. EKG shows sinus rhythm with PACs, diffuse T wave inversions.
Chest x-ray shows trace pleural effusion. COVID and flu positive.
Patient with acute bronchitis secondary to COVID infection, influenza infection. Although BNP elevated no signs of volume overload or CHF exacerbation.
Nonischemic myocardial injury secondary to infection. Trend troponins. Aspirin was given. Would not benefit from Tamiflu or steroids. Hold off on diuresis. Continue Augmentin.
Outpatient follow-up with Ortho for rotator cuff injury right shoulder noted on x-ray.
[2025-01-18 17:25] VITALS: BP 144/75
[2025-01-18] MEDS: HEPARIN 5000 UNITS SC (18:03)
[2025-01-18 19:24] VITALS: BMI 23.3
[2025-01-18 19:44] VITALS: BP 121/69
[2025-01-18] MEDS: OSCAL 500 + D 500 MG PO (21:00)
[2025-01-18] MEDS: MELATONIN 10 MG PO (21:00)
[2025-01-18] MEDS: CRESTOR 10 MG PO (21:00)
[2025-01-18] MEDS: CELLCEPT 500 MG PO (21:00)
[2025-01-18] MEDS: HIPREX 1 GRAM PO (21:00)
[2025-01-18] MEDS: XALATAN OPHTHALMIC SOLUTION 1 DROP BOTH EYES (21:01)
[2025-01-18] MEDS: AMOXIL 1000 MG PO (21:01)
[2025-01-18] MEDS: PEPCID 10 MG PO (21:01)
[2025-01-18] MEDS: OCUVITE SOFTGEL 1 CAP PO (21:01)
[2025-01-18 23:00] VITALS: BP 119/71
[2025-01-19] MEDS: HEPARIN 5000 UNITS SC ×3 (00:32→17:20)
[2025-01-19 03:00] VITALS: BP 132/77
--- NOTE | 2025-01-19 04:00 | PTCARENOTE ---
Patient AAO to self and place, forgetful at times. VSS. Dyspeneic on exertion and at rest yet, satting well on room air. Lungs with expiratory wheeze and coarse crackles. Patient denies pain. OOB x 1 assist with rolling walker, gait unsteady. Bed in
lowest position. Bed alarm is on. Precautions maintained for positive flu and covid results. Call falcon and personal belongings within reach.
--- NOTE | 2025-01-19 04:30 | PTCARENOTE ---
Patient Afib on the monitor with controlled rate. Patient with no history of Afib. Patient SOB due to flu and COVID. Provider notified. EKG ordered.
[2025-01-19 05:42] LABS: Hematocrit 29.1 % (37.0-47.0); Hemoglobin 9.6 g/dL (12.0-16.0); Mean Corpuscular Hgb 30.8 pg (27.0-31.0); Mean Corpuscular Volume 93.3 fL (81.0-99.0); Mean Platelet Volume 11.4 fL (7.4-10.4); Platelet Count 163 10^3/uL (130-400); Red Blood Cell Count 3.12 10^6/uL (4.20-5.40); Red Cell Dist. Width 15.6 % (11.5-14.5); White Blood Cell Count 6.9 10^3/uL (4.8-10.8)
[2025-01-19 05:58] LABS: Blood Urea Nitrogen 31 mg/dl (7-17); Calcium 8.7 mg/dl (8.4-10.2); Carbon Dioxide 18 mmol/L (22-30); Chloride 112 mmol/L (98-107); Estimated Creatinine Clearance 23 ml/min; Glucose 94 mg/dl (70-99); Magnesium 1.8 mg/dl (1.6-2.3); Potassium 4.1 mmol/L (3.5-5.1); Sodium 139 mmol/L (135-145); eGFR 36.41
[2025-01-19 06:00] VITALS: BMI 23.1
[2025-01-19 06:11] LABS: Troponin I 0.079 ng/ml
[2025-01-19 06:28] LABS: TSH 4.96 uIU/ml (0.47-4.68)
--- NOTE | 2025-01-19 06:50 | W.PN.UPDATE ---
Update Note
Progress Note Update
RN reported, patient rhythm notes to be irregular. EKG ordered and shows Afib ST & T wave abnormality consider inferior ischemia. stable VS, patient asymptomatic.
no hx of Afib noted. will order labs TSH, Troponin, BMP, Mag, CBC and may consider founder and president.
[2025-01-19 07:34] VITALS: BP 146/86
--- NOTE | 2025-01-19 10:06 | CM ---
Addendum entered by Cassie Jackson 01/19/25 10:15:
PCP: Dr. Bryson
Original Note:
manager biologics reviewed patient's chart and patient to switch to inpatient, IMM completed on admission, patient lives with spouse in a 2 story home with one step to enter, patient has 1st floor set up with bed and bathroom, patient is independent
with adl's and uses a walker with ambulation, patient has caregivers 8am-8pm, daily, and 7 nights a week, per daughter patient and spouse family have set up close to 24 hour care except for 1-2 hours in home. Per daughter recently PCP office sent a
referral to [facility].
Pharmacy: [facility] on [address].
Plan; Home with spouse, private caregivers and [facility]
[2025-01-19] MEDS: AMOXIL 1000 MG PO ×2 (10:45→17:20)
[2025-01-19] MEDS: LOW STRENGTH ASPIRIN 81 MG PO (10:45)
[2025-01-19] MEDS: CELLCEPT 500 MG PO (10:46)
[2025-01-19] MEDS: CLARITIN 10 MG PO (10:46)
[2025-01-19] MEDS: OSCAL 500 + D 500 MG PO (10:47)
[2025-01-19] MEDS: PROTONIX 40 MG PO (10:48)
[2025-01-19] MEDS: VALTREX 500 MG PO (10:48)
[2025-01-19] MEDS: FEOSOL 325 MG PO (10:48)
[2025-01-19] MEDS: OCUVITE SOFTGEL 1 CAP PO (10:48)
[2025-01-19] MEDS: ZOLOFT 50 MG PO (10:49)
[2025-01-19] MEDS: HIPREX 1 GRAM PO (10:49)
--- NOTE | 2025-01-19 11:01 | W.PN.HOSP.TC ---
Today's Communication/Plan
-
See plan
Assessment / Plan
Assessment / Plan
Impression
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
Flu positive.
COVID-positive.
Abnormal cardiac markers including prior CHF BNP and troponin
Other conditions:
Chronic kidney disease stage III with baseline creatinine 1.5
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
Recurrent UTIs including with ESBL.
Essential hypertension
Dyslipidemia.
Anemia of chronic disease.
GERD.
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
Right shoulder rotator cuff tear
Plan:
Presents with persistent cough and shortness of breath
No evidence for distress upon presentation
Not hypoxic and does not require supplemental oxygen.
Exam with diffuse rhonchi and wheezing, although without respiratory distress.
Chest x-ray with clear lung witt
Positive for flu and COVID of unknown duration.
Continue Tamiflu to complete 5-day course of therapy. Dose to be adjusted by renal function.
Initiate Paxlovid. Dose has been adjusted to renal function. Hold statin for duration of therapy.
Initiate Decadron 6 mg IV daily for 5 to 7 days
Clinical presentation not consistent with bacterial superinfection. Additional 3 days amoxicillin, although would tend to shorten duration for antibiotic therapy
Elevated pro CHF BNP and troponin
Complains of chest pain, although unreliable historian given cognitive status/dementia.
ECG sinus rhythm with PACs and junctional escape beat
Likely non-NM troponin elevation with plateau at 0.079
Status post single dose of Lasix provided in the ED on 01/18.
No evidence for volume overload currently
Hold further diuresis
Check echocardiogram
Check lower extremity Doppler
Continue cardiac monitoring
CKD stage IIIa/B
Creatinine the baseline
Monitor for worsening of metabolic acidosis.
ANCA vasculitis. Details unclear.
Continue immunosuppression with mycophenolate
Continue valacyclovir prophylaxis
GERD
Continue PPI
History of of recurrent UTIs including ESBL pathogens
She has been on Hiprex as outpatient
DNR.
DVT prophylaxis with heparin
Anticipated Discharge: 24 - 48 hours
Subjective/Interval History
-
Date of Service: January 19, 2025
Objective Data
-
Labs:
Laboratory Results
01/19/25
05:11
WBC 6.9
Hgb 9.6 L
Hct 29.1 L
Plt Count 163
Sodium 139
Potassium 4.1
Chloride 112 H
Carbon Dioxide 18 L
BUN 31 H
Creatinine 1.4 H
Glucose 94
Calcium 8.7
Vital Signs:
Vital Signs
Temp Pulse Resp BP Pulse Ox
98.8 F 75 18 146/86 94
01/19/25 07:34 01/19/25 07:34 01/19/25 07:34 01/19/25 07:34 01/19/25 07:34
Physical Exam
-
General: Well Developed and No Apparent Distress
HEENT: Normocephalic, Atraumatic and Moist Mucous Membranes
Respiratory: Clear to Auscultation
Cardiac: Regular Rhythm and S1/S2; Negative Murmur, Rub or Gallop
GI: Soft, Nontender, Nondistended and Normal Bowel Sounds; Negative Organomegaly
Rectal: Deferred by Provider
Musculoskeletal: No Clubbing, No Cyanosis and No Edema
Skin: Negative Rash
Neuro: Nonfocal/Grossly Intact
[2025-01-19 11:04] VITALS: BP 146/75; O2SAT 97
[2025-01-19 11:42] VITALS: BP 129/75
--- NOTE | 2025-01-19 12:30 | VNURNOTE ---
Home health liaison spoke with tracey Méndez to discuss [facility] services, visit scheduling/frequency, homebound status and pet policy. Patient has had [facility] services in the past and daughter aware home visits will be 1-2 times a week to assess and
teach medical management. Tracey Méndez requests the nurse contact her for start of care within 1-2 days after discharge from . [facility] Referral completed in care port
[2025-01-19] MEDS: PAXLOVID 150-100 MG DOSE PACK 1 DOSE PO (13:03)
[2025-01-19] MEDS: TAMIFLU 30 MG PO (13:04)
[2025-01-19] MEDS: DECADRON 6 MG IV (13:04)
[2025-01-19 15:54] VITALS: BP 119/67
[2025-01-19] MEDS: QUESTRAN PO (19:04)
[2025-01-19 19:54] VITALS: BP 137/76
[2025-01-19] MEDS: CELLCEPT PO ×2 (21:22→22:03)
[2025-01-19] MEDS: HIPREX PO ×2 (21:22→22:03)
[2025-01-19] MEDS: MELATONIN PO ×2 (21:22→22:04)
[2025-01-19] MEDS: PAXLOVID 150-100 MG DOSE PACK PO ×2 (21:22→22:03)
[2025-01-19] MEDS: OSCAL 500 + D PO ×2 (21:22→22:03)
[2025-01-19] MEDS: AMOXIL PO ×2 (21:22→22:03)
[2025-01-19] MEDS: XALATAN OPHTHALMIC SOLUTION BOTH EYES ×2 (21:23→22:04)
[2025-01-19] MEDS: OCUVITE SOFTGEL PO ×2 (21:23→22:03)
--- NOTE | 2025-01-19 22:08 | PTCARENOTE ---
patient with increased agitation, refusing her medications. yelling at staff. provider notified.
--- NOTE | 2025-01-19 23:56 | PTCARENOTE ---
patient refusing care, including her vital signs. provider notified.
[2025-01-20] MEDS: HEPARIN SC ×5 (00:04→21:30)
--- NOTE | 2025-01-20 03:19 | PTCARENOTE ---
Patient alert with agitation. Uncooperative with care. This RN notified provider and suggested hospital acquired delirium. Per patient's daughter, Honey, her mom experience hospital acquired delirium during a prior hospital stay. Patient refused
overnight vitals--provider notified. Refused q 2 hour turns. Bed alarm was placed for patient safety. Patient did convert out of Afib to NSR to sinus kallie at 2300. OOB x 1 assist with RW. Bilateral lower extremity duplex pending completion. Bed is
in lowest position with bed alarm on.Call falcon and personal belongings within reach. Patient's room conducive to sleep to promote rest and lessen delirium
[2025-01-20 05:46] VITALS: BMI 23.7
[2025-01-20 07:24] VITALS: BP 144/69
[2025-01-20] MEDS: OCUVITE SOFTGEL 1 CAP PO ×2 (09:09→20:03)
[2025-01-20] MEDS: PROTONIX 40 MG PO (09:09)
[2025-01-20] MEDS: ZOLOFT 50 MG PO (09:09)
[2025-01-20] MEDS: HIPREX 1 GRAM PO ×2 (09:09→20:01)
[2025-01-20] MEDS: TAMIFLU 30 MG PO (09:09)
[2025-01-20] MEDS: AMOXIL 1000 MG PO ×3 (09:09→20:02)
[2025-01-20] MEDS: CELLCEPT 500 MG PO ×2 (09:10→20:02)
[2025-01-20] MEDS: LOW STRENGTH ASPIRIN 81 MG PO (09:12)
[2025-01-20] MEDS: OSCAL 500 + D 500 MG PO ×2 (09:12→20:02)
[2025-01-20] MEDS: FEOSOL 325 MG PO (09:12)
[2025-01-20] MEDS: CLARITIN 10 MG PO (09:12)
[2025-01-20] MEDS: PAXLOVID 150-100 MG DOSE PACK 1 DOSE PO ×2 (09:13→21:14)
[2025-01-20 11:33] VITALS: BP 142/79
--- NOTE | 2025-01-20 12:04 | WOUNDNOTE ---
RIGHT ARM SKIN TEAR
--- NOTE | 2025-01-20 12:05 | WOUNDNOTE ---
RIGHT ARM SKIN TEARS
--- NOTE | 2025-01-20 12:05 | WOUNDNOTE ---
RIGHT ARM SKIN TEAR
[2025-01-20] MEDS: DECADRON 6 MG IV (13:49)
[2025-01-20] MEDS: QUESTRAN 4 GRAM PO (13:51)
--- NOTE | 2025-01-20 14:02 | WOUNDNOTE ---
[facility] RN note: Patient admitted with flu and Covid
See H&P for complete history.
PMH: ANCA Vasculiti, CKD, recurrent UTI's, dementia
Wound Location and type/assessment: Patient admitted with 2 right arm skin tear s/p fall at home on 01/15. Skin tear is full thickness and friable. Flap appears to be adhering to skin but could not be moved over wound bed due to excessive bleeding.
Caregiver at bedside, daughter on phone explaining wound care that was completed in ER. Daughter and caregiver asking for specific wound interventions such as collagen dressing. Explained that due to depth of wound and bleeding that a non-adherent
pressure dressing would be appropriate. Patient ambulates with assistance of walker and caregiver. Sacrum and heel could not be assessed because patient was being transported to [facility].
Appetite: Good
Pressure redistribution devices in place: Versa Care Air, air cushion to chair.
Plan: Reviewed plan of care and pictures with Dr. Toribio. Caregiver upset with wound care of Petroleum gauze dressing and voiced concern that dressing would stick. Explained to caregiver that dressing can be changed daily to avoid sticking. Plan
is to apply small amount of Hydrogel on wound bed before applying petroleum gauze. Orders confirmed with Dr. Toribio and discharge, care plan and orders updated. Plan is for discharge home tomorrow with VN. Family agreeable to take patient to [facility]
after discharge. Will confirm orders with hospitalist and update nurse.
Updated care plan and will follow as needed.
Note to case management of equipment requested for discharge:
Recommend follow up at wound care center upon discharge.
--- NOTE | 2025-01-20 15:11 | W.PN.HOSP.TC ---
Today's Communication/Plan
-
Continue antivirals.
Increase activity.
Continue wound care per
Discharge planning for 01/21
Assessment / Plan
Assessment / Plan
Impression
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
Flu positive.
COVID-positive.
Abnormal cardiac markers including prior CHF BNP and troponin
Other conditions:
Chronic kidney disease stage III with baseline creatinine 1.5
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
Recurrent UTIs including with ESBL.
Essential hypertension
Dyslipidemia.
Anemia of chronic disease.
GERD.
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
Right shoulder rotator cuff tear
Plan:
Presents with persistent cough and shortness of breath
No evidence for distress upon presentation
Not hypoxic and does not require supplemental oxygen.
Exam with diffuse rhonchi and wheezing, although without respiratory distress.
Chest x-ray with clear lung witt
Positive for flu and COVID of unknown duration.
Continue Tamiflu to complete 5-day course of therapy. Dose to be adjusted by renal function.
Initiate Paxlovid. Dose has been adjusted to renal function. Hold statin for duration of therapy.
Initiate Decadron 6 mg IV daily for 5 to 7 days
Clinical presentation not consistent with bacterial superinfection. Additional 3 days amoxicillin, although would tend to shorten duration for antibiotic therapy
Elevated pro CHF BNP and troponin
Complains of chest pain, although unreliable historian given cognitive status/dementia.
ECG sinus rhythm with PACs and junctional escape beat
Likely non-SC troponin elevation with plateau at 0.079
Status post single dose of Lasix provided in the ED on 01/18.
No evidence for volume overload currently
Hold further diuresis
Cardiogram with preserved biventricular function and no significant valvular abnormalities
Lower extremity Doppler unremarkable
Right upper extremity hematoma status post fall. Continue wound care
CKD stage IIIa/B
Creatinine the baseline
Monitor for worsening of metabolic acidosis.
ANCA vasculitis. Details unclear.
Continue immunosuppression with mycophenolate
Continue valacyclovir prophylaxis
GERD
Continue PPI
History of of recurrent UTIs including ESBL pathogens
She has been on Hiprex as outpatient
DNR.
DVT prophylaxis with heparin
Anticipated Discharge: 24 - 48 hours
Subjective/Interval History
-
Date of Service: January 20, 2025
Objective Data
-
Vital Signs:
Vital Signs
Temp Pulse Resp BP Pulse Ox
97.4 F 78 18 142/79 95
01/20/25 11:33 01/20/25 11:33 01/20/25 11:33 01/20/25 11:33 01/20/25 11:33
I&O
01/19/25 01/20/25 01/21/25
06:59 06:59 06:59
Intake Total 960 / 960
Balance 960 / 960
Physical Exam
-
General: Well Developed and No Apparent Distress
HEENT: Normocephalic, Atraumatic and Moist Mucous Membranes
Respiratory: Clear to Auscultation
Cardiac: Regular Rhythm and S1/S2; Negative Murmur, Rub or Gallop
GI: Soft, Nontender, Nondistended and Normal Bowel Sounds; Negative Organomegaly
Rectal: Deferred by Provider
Musculoskeletal: No Clubbing, No Cyanosis and No Edema
Skin: Negative Rash
Neuro: Nonfocal/Grossly Intact
[2025-01-20 15:52] VITALS: BP 138/82
[2025-01-20 19:58] VITALS: BP 125/74
[2025-01-20] MEDS: MELATONIN 10 MG PO (20:02)
[2025-01-20] MEDS: PEPCID 10 MG PO (20:02)
[2025-01-20] MEDS: XALATAN OPHTHALMIC SOLUTION 1 DROP BOTH EYES (20:02)
[2025-01-21 00:18] VITALS: BP 134/75
--- NOTE | 2025-01-21 01:37 | PTCARENOTE ---
AAO to self and place. Patient pleasant and cooperative. VSS. Patient denies pain. Respiratory illness and contact precautions maintained. Patient up in the chair to sleep--was not agreeable to sleeping in her bed. Chair alarm on. Patient
appropriately utilizing her call falcon. All patient needs met. Personal belongings within reach. Hourly rounds completed. Anticipated discharge in 24 hours.
[2025-01-21 03:18] VITALS: BP 156/86
[2025-01-21 06:00] VITALS: BMI 23.8
[2025-01-21 07:00] VITALS: BP 144/81
--- NOTE | 2025-01-21 08:56 | PN.CDI ---
CDI
- -
CDI:
Physician Documentation Request
Admit Date: 01/19/25 09:51
Dear Doctor Catarino,
Please review the following and provide your response in the progress notes.
Clinical Indicators:
- 01/18 H&P with pmh CHF and 'acute heart failure exacerbation'
- 01/20 PN 'Elevated pro CHF BNP'
- 40mg IV Lasix ordered but not given
- Echo EF 50-55%
Laboratory Tests
01/18/25
12:29
[id number] Pept [id number]
Please provide further specificity regarding the most likely type and acuity of CHF you are evaluating, treating or monitoring.
Type Acuity
Systolic Acute
Diastolic Chronic
Combined Systolic/Diastolic Acute on Chronic
Other
Use of terms such as suspected, likely, concern for, or probable (associated with a specific diagnosis that is being evaluated, monitored, or treated as if it exists) are acceptable and can be coded in the inpatient setting, when documented at the
time of discharge.
Thank you,
Eddie Rahman RN
CDI Specialist
Please use your independent medical judgment in providing your response.
/
[2025-01-21] MEDS: CELLCEPT 500 MG PO (08:57)
[2025-01-21] MEDS: PAXLOVID 150-100 MG DOSE PACK 1 DOSE PO (08:57)
[2025-01-21] MEDS: VALTREX 500 MG PO (08:57)
[2025-01-21] MEDS: HIPREX 1 GRAM PO (08:57)
[2025-01-21] MEDS: AMOXIL 1000 MG PO (08:57)
[2025-01-21] MEDS: TAMIFLU 30 MG PO (08:58)
[2025-01-21] MEDS: OCUVITE SOFTGEL 1 CAP PO (08:58)
[2025-01-21] MEDS: ZOLOFT 50 MG PO (08:58)
[2025-01-21] MEDS: LOW STRENGTH ASPIRIN 81 MG PO (08:58)
[2025-01-21] MEDS: OSCAL 500 + D 500 MG PO (08:58)
[2025-01-21] MEDS: CLARITIN 10 MG PO (08:58)
[2025-01-21] MEDS: FEOSOL 325 MG PO (08:58)
[2025-01-21] MEDS: PROTONIX 40 MG PO (08:58)
[2025-01-21] MEDS: HEPARIN SC (09:01)
--- NOTE | 2025-01-21 10:52 | W.DS.TRANS ---
DC Summary - Manager Architectural
-
Discharge Instructions:
Discharge Diagnosis/Procedures COVID-19 and Influenza A bronchitis
Diet Regular
Instructions:
Stand-Alone Forms:
Changes to Home Medications: Yes
Discharge Medications:
DC Medications w/original date entered in [facility]
pantoprazole 40 mg tablet,delayed release 40 mg PO DAILY Gastrointestinal issue 08/09/22
methenamine hippurate 1 gram tablet 1 g PO BID Urinary Issue 06/27/23
rosuvastatin 10 mg tablet 10 mg PO DAILY@2000 High Cholesterol 06/27/23
mycophenolate mofetil 500 mg tablet 500 mg PO BID Autoimmune Disorder 11/26/23
aspirin 81 mg chewable tablet 81 mg PO DAILY Blood Clot Prevention/Tx 12/18/23
calcium 600 mg (as carbonate)-vit D3 20 mcg (800 unit) chewable tablet (Caltrate plus D) 1 tab PO BID Supplement 12/18/23
famotidine 20 mg tablet 10 mg PO Q48H@2200 Gastrointestinal Issue 12/18/23
melatonin 5 mg tablet 10 mg PO HS Sleep 12/18/23
acetaminophen 500 mg tablet (Tylenol Extra Strength) 500 mg PO Q6H PRN mild pain 01/18/25
benzonatate 200 mg capsule 200 mg PO TIDPRN PRN cough 01/18/25
cholestyramine (with sugar) 4 gram powder for susp in a packet 4 g PO DAILY@1400 Loose Stools 01/18/25
dextran 70-hypromellose eye drops in a dropperette (Artificial Tears (PF) drops in a dropperette) 1 drp BOTH EYES QIDPRN PRN Dry eye 01/18/25
ferrous sulfate 325 mg (65 mg iron) tablet (iron) 325 mg PO DAILY Urinary Issue 01/18/25
latanoprost 0.005 % eye drops 1 drp BOTH EYES HS Eye Condition 01/18/25
loratadine 10 mg tablet (Claritin) 10 mg PO DAILY ll 01/18/25
sertraline 50 mg tablet 50 mg PO DAILY Mental Health 01/18/25
valacyclovir 500 mg tablet 500 mg PO MOWEFR@0800 prophylaxis 01/18/25
vit C 250 mg-vit E 90 mg-zinc 40 mg-copper 1 bc-nivihq-ejgeck capsule (PreserVision AREDS-2) 1 tab PO BID Supplement 01/18/25
nirmatrelvir 150 mg-ritonavir 100 mg tablets in a dose pack (Paxlovid) 1 ea PO BID #6 ea 01/21/25
oseltamivir 30 mg capsule 30 mg PO DAILY #3 caps 01/21/25
Home Medication Changes
Completing course of Paxlovid and tamiflu
Pending Results: No
[2025-01-21 11:00] VITALS: BP 129/73
--- NOTE | 2025-01-21 11:39 | CM ---
Addendum entered by Lakesha Lerma 01/21/25 12:52:
IMM benefit explained to patient via phone @ [phone]
Original Note:
Plan: discharge to home today with home health/VN
Per patient's daughter, Honey, friend/caregiver will transport home; daughter requested that Wound Care Nurse see her mother before discharge today; nursing and VN liaison notified
Home Health referral sent to [facility] via [facility]
[2025-01-21] MEDS: DECADRON 6 MG IV (13:31)
[2025-01-21] MEDS: QUESTRAN 4 GRAM PO (13:31)
[2025-01-21 15:00] VITALS: BP 112/60
== END 2025-01-21 15:46 | disposition home or self-care (01) | DRG 193 ==
LOC: 4 WEST ACU 09:51
PROVIDERS: Emergency Medicine; Nurse Practitioner Family; Nurse Practitioner Gerontology; ADMITTING PHYSICIAN Hospitalist; ATTENDING PHYSICIAN Internal Medicine; EMERGENCY PHYSICIAN Emergency Medicine
DX: J10.1 Influenza due to other identified influenza virus with other respiratory manifestations (principal); U07.1 COVID-19; I13.0 Hypertensive heart and chronic kidney disease with heart failure and stage 1 through stage 4 chronic kidney disease, or unspecified chronic kidney disease; D84.821 Immunodeficiency due to drugs; E87.22 Chronic metabolic acidosis; I5A Non-ischemic myocardial injury (non-traumatic); R62.7 Adult failure to thrive; Z68.23 Body mass index [BMI] 23.0-23.9, adult; Z87.891 Personal history of nicotine dependence; D63.8 Anemia in other chronic diseases classified elsewhere; N18.31 Chronic kidney disease, stage 3a; I77.82 Antineutrophilic cytoplasmic antibody [ANCA] vasculitis; Z87.440 Personal history of urinary (tract) infections; K21.9 Gastro-esophageal reflux disease without esophagitis; Z66 Do not resuscitate; Z79.624 Long term (current) use of inhibitors of nucleotide synthesis; E78.5 Hyperlipidemia, unspecified; F03.90 Unspecified dementia, unspecified severity, without behavioral disturbance, psychotic disturbance, mood disturbance, and anxiety; I50.9 Heart failure, unspecified
CPT/HCPCS: 71046; 73030; 80048; 80053; 83605; 83690; 83735; 83880; 84443; 84484; 85025; 85027; 87502; 87811; 93005; 93306; 93970; 97163; 97530; 99285

== ENCOUNTER → 2025-02-10 14:13 | Outpatient (REF) | payer MEDICARE, BC, SELFPAY ==
[2025-02-10 15:21] LABS: % Basophils 0.6 % (0-2); % Eosinophils 1.1 % (0-6); % Immature Granulocytes 0.2 % (0-0.5); % Lymphocytes 17.6 % (20.5-51.1); % Monocytes 10.7 % (1.7-9.3); % Neutrophils 69.8 % (42.2-75.2); Absolute Eosinophils 0.1 10^3/uL (0-0.7); Absolute Lymphocytes 0.9 10^3/uL (1.2-3.4); Absolute Monocytes 0.6 10^3/uL (0.1-0.6); Absolute Neutrophils 3.7 10^3/uL (1.4-6.5); Hematocrit 29.3 % (37.0-47.0); Hemoglobin 9.2 g/dL (12.0-16.0); Mean Corp Hgb Conc. 31.4 g/dL (33.0-37.0); Mean Corpuscular Hgb 30.9 pg (27.0-31.0); Mean Corpuscular Volume 98.3 fL (81.0-99.0); Mean Platelet Volume 10.5 fL (7.4-10.4); Nucleated Red Blood Cells % 0 %; Platelet Count 210 10^3/uL (130-400); Red Blood Cell Count 2.98 10^6/uL (4.20-5.40); Red Cell Dist. Width 17.5 % (11.5-14.5); White Blood Cell Count 5.2 10^3/uL (4.8-10.8)
[2025-02-10 15:37] LABS: Erythrocyte Sed Rate 56 mm/hour (0-20)
[2025-02-10 15:45] LABS: ALT (SGPT) 21 U/L (0-35); AST (SGOT) 22 U/L (14-36); Alkaline Phosphatase 89 U/L (38-126); Blood Urea Nitrogen 29 mg/dl (7-17); Calcium 9.4 mg/dl (8.4-10.2); Carbon Dioxide 20 mmol/L (22-30); Chloride 109 mmol/L (98-107); Glucose 125 mg/dl (70-99); Potassium 4.1 mmol/L (3.5-5.1); Sodium 140 mmol/L (135-145); Total Bilirubin 0.3 mg/dl (0.2-1.3); Total Protein 6.1 g/dl (6.3-8.2); eGFR 43.81
[2025-02-10 15:49] LABS: C-Reactive Protein < 5.00 mg/L (0.0-10.00)
== END ==
LOC: RAD 14:13
PROVIDERS: ATTENDING PHYSICIAN Nurse Practitioner Family; FAMILY PHYSICIAN Internal Medicine
DX: R09.89 Other specified symptoms and signs involving the circulatory and respiratory systems (principal)
CPT/HCPCS: 36415; 71046; 80053; 85025; 85652; 86140

== ENCOUNTER 2025-02-23 16:16 | Emergency (ER) | payer MEDICARE, BC, SELFPAY ==
[2025-02-23 16:18] VITALS: BP 129/70
[2025-02-23 18:10] VITALS: BP 121/108
--- NOTE | 2025-02-23 19:27 | ED.GENMED ---
History of Present Illness
General
Chief Complaint: Fall
Source: patient and family (daughter)
Exam Limitations: none
Time Seen by Provider: 02/23/25 17:04
Nursing documentation reviewed up to this point in time: agreed with
History of Present Illness
History of Present Illness:
Patient states she lost her balance while carrying a plate in her kitchen and fell. Hit right side of head on floor. Sustained a skin tear to her left posterior elbow and right forearm. SHe states she scooted across floor on bottom to reach
furniture to pull self up. Incident occurred just [employer]. Brought to ED by daughter for eval.
Past History
Past History
ED Past Medical History: Cancer (basal cell carcinoma) and Other (Rosacea, eczema)
ED Past Surgical History: Cholecystectomy, Gynecological (D&C), Orthopedic (ankle fracture with an placement 2012) and Tonsilectomy
Patient has exhibited threatening behavior?: No
PSI?: No
Social History
Tobacco: Former smoker
Alcohol: Occasional
Personal:
Living: with family
Employment: Retired
Family History
Family History: Hypertension
Review of Systems
Review of Systems
Allergies reviewed?: Yes
All Other Systems: ROS reviewed and negative except as documented in HPI and ROS
Constitutional: Reports no symptoms
EENT: Reports no symptoms
Respiratory: Reports no symptoms
Cardiac: Reports no symptoms
ABD/GI: Reports no symptoms
: Reports no symptoms
Musculoskeletal: Reports no symptoms
Skin: Reports other (small hemtoma right parietal. skin tear left posterior elbow and right forearm)
Neurological: Reports no symptoms
Psychiatric: Reports no symptoms
Phy Exam
General Physical Exam
General Presentation: well appearing and no apparent distress
General age: appears stated age
General Skin: warm and dry
General Habitus: normal
General Mental: alert
Eye Exam
Eye Exam: PERRL and EOMI
Neurological Exam
Neurological Exam: alert, oriented x3, CN II-XII intact, no motor deficits, no sensory deficits, speech normal and normal gait
Musculoskeletal Exam
Musculoskeletal Exam: full ROM and neuro vasc intact
Skin Exam
Skin Exam: normal color, warm/dry and no rash
Psychiatric Exam
Psychiatric Exam: normal mood/affect
Course
Orders/Labs/Results
Orders:
Orders
02/23/25 17:28
CT Head W/o Iv Contrast Urgent
Comment:
Reason For Exam: fall
Vital Signs
Initial and Last Documented VS:
Initial Vital Signs
Temp Pulse Resp BP Pulse Ox
98.2 F 97 18 129/70 98
02/23/25 16:18 02/23/25 16:18 02/23/25 16:18 02/23/25 16:18 02/23/25 16:18
Last Documented Vital Signs
Temp Pulse Resp BP Pulse Ox
98.2 F 97 18 121/108 98
02/23/25 16:18 02/23/25 16:18 02/23/25 16:18 02/23/25 18:10 02/23/25 16:18
Procedures
Laceration Closure
Left Elbow:
Status of Wound: clean
Description of Wound Edges: sharp
Preparation: cleaned with saline
Revision/Debridement: routine- no revision
Wound exploration: explored to base- no FB
Type of Closure: Dermabond-skin glue
*Radiology
Radiology exam reviewed: radiology read reviewed
*Pulse Oximetry
Patient hypoxic: no
*Critical Care Note
Total Time (30-74mins, 75-104mins- exclusive of procedures): Not Applicable
Update Note
Update Note:
Patient to ED s/p fall. Hit head on floor. No LOC. CT report revieweved, no acute findings. Wounds addressed in ED. She is disharged home and will follow up with PCP. GIven instructions on s/s to return to ED.
ED Attending Note
-
Portions of this chart may have been created with voice recognition software.� Occasional wrong word or��sound alike� substitutions may have occurred due to the inherent limitations of voice recognition software.
Discharge Plan
Departure
Patient Disposition: Home (Routine Discharge)
Date of Disposition: 02/23/25
Time of Disposition: 19:26
Patient with high blood pressure during this ER visit?: No
Condition: Good
Covid-19: Not Applicable
Discharge Problem:
Head injury, Skin tear
Instructions: Laceration Repair With Glue (DC), Wound Care (DC), Head Injury in Adults (DC), Preventing falls in adults
Prescriptions:
No Action
pantoprazole 40 mg tablet,delayed release (DR/EC)
40 mg PO DAILY
methenamine hippurate 1 gram tablet
1 g PO BID
rosuvastatin 10 mg tablet
10 mg PO DAILY@2000
mycophenolate mofetil 500 mg tablet
500 mg PO BID
aspirin 81 mg Tablet,Chewable
81 mg PO DAILY
melatonin 5 mg Tablet
10 mg PO HS
Caltrate 600 plus D 600 mg-20 mcg (800 unit) Tablet,Chewable
1 tab PO BID
famotidine 20 mg tablet
10 mg PO Q48H@2200
latanoprost 0.005 % drops
1 drp BOTH EYES HS
benzonatate 200 mg capsule
200 mg PO TIDPRN PRN (Reason: cough)
valacyclovir 500 mg Tablet
500 mg PO MOWEFR@0800
acetaminophen [Tylenol Extra Strength] 500 mg Tablet
500 mg PO Q6H PRN (Reason: mild pain)
ferrous sulfate [iron] 325 mg (65 mg iron) Tablet
325 mg PO DAILY
sertraline 50 mg tablet
50 mg PO DAILY
loratadine [Claritin] 10 mg Tablet
10 mg PO DAILY MDD ALLERGIES
Artificial Tears (PF) Dropperette
1 drp BOTH EYES QIDPRN PRN (Reason: Dry eye)
cholestyramine (with sugar) 4 gram Powder In Packet
4 g PO DAILY@1400
PreserVision AREDS-2 250-90-40-1 mg Capsule
1 tab PO BID
Paxlovid 150-100 mg Tablets,Dose Pack
1 ea PO BID Qty: 6 0RF
oseltamivir 30 mg Capsule
30 mg PO DAILY Qty: 3 0RF
Referrals:
Delio Bryson DO [Family Provider] - Follow up in 2-3 days
Interventions
Interventions:
*General Assessment Last Done: 02/23/25 16:18
*ED- Fall Risk Assessment Last Done: 02/23/25 18:32
*ED COVID-19 Vaccine History Last Done: 02/23/25 18:32
ED-Musculoskeletal Assessment Last Done: 02/23/25 17:45
ED- Neurological Assessment Last Done: 02/23/25 17:45
ED-Skin Assessment Last Done: 02/23/25 17:45
Discharge Date and Time
Print Language: [place]
Skin Exam
Laceration
Left Elbow:
Length in cm: 1.5
Orientation: C shaped
Type of Laceration: simple
Any active bleeding?: no active bleeding
Distal skin color and temperature: normal-warm & good color
Normal distal neurovascular exam: Yes
Range of motion: full
Abrasion
Right forearm:
Description of abrasion: deep/clean
[2025-02-23 19:59] VITALS: BP 117/67
== END 2025-02-23 20:00 | disposition home or self-care (01) ==
LOC: EMR 16:16
PROVIDERS: EMERGENCY PHYSICIAN Emergency Medicine; FAMILY PHYSICIAN Internal Medicine
DX: S09.90XA Unspecified injury of head, initial encounter (principal); S51.012A Laceration without foreign body of left elbow, initial encounter; S51.811A Laceration without foreign body of right forearm, initial encounter; W18.39XA Other fall on same level, initial encounter; Z87.891 Personal history of nicotine dependence; Z90.49 Acquired absence of other specified parts of digestive tract
CPT/HCPCS: 12001; 99284; 70450

== ENCOUNTER → 2025-05-11 12:50 | Outpatient (REF) | payer MEDICARE, BC, SELFPAY ==
[2025-05-11 17:09] LABS: Urine Character Slightly Cloudy (Clear)
[2025-05-11 17:18] LABS: Urine Squamous Cell 0-2 /LPF (Few)
[2025-05-11 17:19] LABS: Urine White Cell 80-90 /HPF (0-5)
== END ==
LOC: CLAB 12:50
PROVIDERS: ATTENDING PHYSICIAN Internal Medicine
DX: N39.0 Urinary tract infection, site not specified (principal)
CPT/HCPCS: 81003; 81015; 87086

== ENCOUNTER → 2025-06-22 14:04 | Outpatient (REF) | payer MEDICARE, BC, SELFPAY | LOC: HWRCS 14:04 | PROVIDERS: ATTENDING PHYSICIAN Internal Medicine Interventional Cardiology; FAMILY PHYSICIAN Internal Medicine | DX: R06.09 Other forms of dyspnea (principal); I10 Essential (primary) hypertension; E78.5 Hyperlipidemia, unspecified | CPT/HCPCS: 93306 ==

== ENCOUNTER 2025-09-20 16:02 | Emergency (ER) | payer MEDICARE, BC, SELFPAY ==
[2025-09-20 16:09] VITALS: BP 142/106
[2025-09-20 16:33] LABS: Hematocrit 33.5 % (37.0-47.0); Hemoglobin 10.6 g/dL (12.0-16.0); Mean Corp Hgb Conc. 31.6 g/dL (33.0-37.0); Mean Corpuscular Volume 97.4 fL (81.0-99.0); Nucleated Red Blood Cells % 0 %; Platelet Count 205 10^3/uL (130-400); Red Cell Dist. Width 14.6 % (11.5-14.5)
[2025-09-20 16:41] LABS: INR 1.03; PT 13.8 Sec (11.4-14.6)
[2025-09-20 16:42] LABS: APTT 30.6 Sec (23.4-35.0)
[2025-09-20 16:49] LABS: ALT (SGPT) 18 U/L (0-35); AST (SGOT) 24 U/L (14-36); Albumin 4.1 g/dl (3.5-5.0); Alkaline Phosphatase 64 U/L (38-126); Blood Urea Nitrogen 26 mg/dl (7-17); Calcium 9.2 mg/dl (8.4-10.2); Carbon Dioxide 23 mmol/L (22-30); Chloride 107 mmol/L (98-107); Glucose 107 mg/dl (70-99); Potassium 4.2 mmol/L (3.5-5.1); Sodium 136 mmol/L (135-145); Total Protein 6.3 g/dl (6.3-8.2); eGFR 36.19
[2025-09-20 20:47] LABS: Urine Character Cloudy (Clear)
[2025-09-20 20:58] LABS: Urine Red Blood Cell 26-30 /HPF (0-2)
[2025-09-20 20:59] VITALS: BP 120/75
[2025-09-20 20:59] LABS: Urine White Cell 70-80 /HPF (0-5)
--- NOTE | 2025-09-20 22:24 | ED.GENMED ---
History of Present Illness
General
Chief Complaint: Vaginal Bleeding
Source: patient
Exam Limitations: none
Time Seen by Provider: 09/20/25 18:09
Nursing documentation reviewed up to this point in time: agreed with
History of Present Illness
History of Present Illness:
Patient to the emergency department for evaluation of possible rectal versus urinary tract bleeding. Patient states she had a bowel movement today and noticed large amount of blood and mucus in the toilet. She had a similar event approximately 2
to 3 days ago. No bleeding in between. Brought to the ED by her caregiver. Patient denies any abdominal pain nausea or vomiting she denies any pelvic pain.
Past History
Past History
ED Past Medical History: Cancer (basal cell carcinoma) and Other (Rosacea, eczema)
ED Past Surgical History: Cholecystectomy, Gynecological (D&C), Orthopedic (ankle fracture with an placement 2012) and Tonsilectomy
Patient has exhibited threatening behavior?: No
PSI?: No
Social History
Tobacco: Former smoker
Alcohol: Occasional
Personal:
Living: with family
Employment: Retired
Family History
Family History: Hypertension
Review of Systems
Review of Systems
Allergies reviewed?: Yes
All Other Systems: ROS reviewed and negative except as documented in HPI and ROS
Constitutional: Reports no symptoms
EENT: Reports no symptoms
Respiratory: Reports no symptoms
Cardiac: Reports no symptoms
ABD/GI: Reports other (Patient reports large amount of blood in toilet after bowel movement today)
: Reports other (Recent UTI (2 weeks ago). Concern for possible urinary bleeding)
Musculoskeletal: Reports no symptoms
Skin: Reports no symptoms
Neurological: Reports no symptoms
Psychiatric: Reports no symptoms
Phy Exam
General Physical Exam
General Presentation: well appearing and no apparent distress
General age: appears stated age
General Skin: warm and dry
General Habitus: normal
General Mental: alert
Cardiovascular Exam
Cardiovascular Exam: regular rate/rhythm and no edema
Pulmonary Exam
Pulmonary Exam: lungs clear and no respiratory distress
Gastrointestinal Exam
Gastrointestinal Exam: normal bowel sounds, non tender, soft, no organomegaly, no pulsatile mass, non distended and no cva tenderness
Rectal Exam: hemorrhoids (Soft external hemorrhoids, no active bleeding) and no rectal mass
Stool: brown
Guaiac Status: negative
Genitourinary Exam Female
Exam Female: no bleeding
Vaginal Discharge: creamy
Musculoskeletal Exam
Musculoskeletal Exam: full ROM
Skin Exam
Skin Exam: normal color, warm/dry and no rash
Psychiatric Exam
Psychiatric Exam: normal mood/affect
Course
Orders/Labs/Results
Orders:
Orders
09/20/25 16:20
Type+Screen Urgent
Complete Blood Count/With Diff Urgent
Comprehensive Metabolic Panel Urgent
PTT Urgent
Prothrombin Time Urgent
09/20/25 18:22
Pelvis (Non Obstetric) US [US Pelvis Only (non-obstetric)] Urgent
Comment:
Reason For Exam: vaginal bleeding
09/20/25 20:36
Urinalysis Reflex To Culture Urgent
Date Specimen was Collected: 09/20/25
Time Specimen was Collected: 20:27
Urine Microscopic Reflex Cult Urgent
Urine Culture Urgent
MELISSA Source: U
Specimen Description:
Date Specimen was Collected: 09/20/25
Time Specimen was Collected: 20:27
09/20/25 22:11
Amoxicillin 875 mg/Clav 125 mg [Augmentin 875 mg/125 mg] 1 tablet PO NOW STA
Abnormal Lab Results
09/20/25 09/20/25
16:20 20:36
WBC 11.9 H 10^3/uL
(4.8-10.8)
RBC 3.44 L 10^6/uL
(4.20-5.40)
Hgb 10.6 L g/dL
(12.0-16.0)
Hct 33.5 L %
(37.0-47.0)
MCHC 31.6 L g/dL
(33.0-37.0)
RDW 14.6 H %
(11.5-14.5)
Abs Immat Gran (auto) 0.1 H 10^3/uL
(0-0.05)
Absolute Neuts (auto) 9.2 H 10^3/uL
(1.4-6.5)
Absolute Monos (auto) 0.8 H 10^3/uL
(0.1-0.6)
Neutrophils % 77.2 H %
(42.2-75.2)
Lymphocytes % 14.9 L %
(20.5-51.1)
BUN 26 H mg/dl
(7-17)
Creatinine 1.4 H mg/dL
(0.6-1.0)
Glucose 107 H mg/dl
(70-99)
Ur Occult Blood Reflex 4+ A
(Negative)
Leukocyte Esterase Rfl 3+ A
(Negative)
Urine RBC 26-30 A /HPF
(0-2)
Urine WBC (Reflex) 70-80 A /HPF
(0-5)
Urine Bacteria (Reflex) Many A
(Negative)
Urine Albumin (Reflex) 2+ A
(Neg - Trace)
09/20/25 16:20
09/20/25 16:20
Vital Signs
Initial and Last Documented VS:
Initial Vital Signs
Temp Pulse Resp BP Pulse Ox
97.8 F 75 15 142/106 97
09/20/25 16:09 09/20/25 16:09 09/20/25 16:09 09/20/25 16:09 09/20/25 16:09
Last Documented Vital Signs
Temp Pulse Resp BP Pulse Ox
98 F 80 16 120/75 100
09/20/25 20:59 09/20/25 20:59 09/20/25 20:59 09/20/25 20:59 09/20/25 20:59
*Pulse Oximetry
SaO2: 100
Oxygen Mode of Delivery: Room air
Patient hypoxic: no
*Critical Care Note
Total Time (30-74mins, 75-104mins- exclusive of procedures): Not Applicable
Update Note
Update Note:
Patient to the emergency department for evaluation after noticing large amount of blood in toilet after having a bowel movement earlier today. She had a similar event approximately 2 days ago. She denies any vaginal or rectal bleeding between 2
events. She has had no further bleeding today. She denies any abdominal pain, nausea or vomiting. On exam she is alert and oriented vital signs are stable and she remains afebrile. She is no visible distress. Abdomen is soft nontender bowel
sounds x 4 quadrants. Rectal exam completed. She has a external hemorrhoid but no active bleeding was noted. Stool soft brown heme-negative. No blood in rectum. Limited vaginal exam. Small amount of clear vaginal discharge was present. There
is no active bleeding. She was sent for an ultrasound. A cystic structure was noted in the pelvis. Urology recommends follow-up MRI for further evaluation of this structure. This was discussed with patient and daughter. Patient states that she
has been seen in the past by [facility] to rule out bladder cancer. Patient states further testing and evaluation ruled out the bladder cancer. Patient unsure if the lesion seen today is what had been evaluated in the past. She will
follow-up with provider regarding this issue. She was also treated for urinary tract infection approximately 2 weeks ago. She was placed on a 5-day course of Levaquin for Klebsiella. Daughter states initially patient seemed to be improving,
mucousy discharge noted in toilet had lessened. Now daughter feels that the symptoms are returning. UA tonight concerning for UTI with 70-80 WBCs many bacteria +[address] on a course of Augmentin 875 twice daily x 7 days. She will
need close follow-up with her urology team. Will discharge home tonight with daughter. She was given instructions on signs and symptoms to return to the emergency department and she is agreeable to this plan.
ED Attending Note
-
Portions of this chart may have been created with voice recognition software.� Occasional wrong word or��sound alike� substitutions may have occurred due to the inherent limitations of voice recognition software.
Discharge Plan
Departure
Patient Disposition: Home (Routine Discharge)
Date of Disposition: 09/20/25
Time of Disposition: 22:13
Patient with high blood pressure during this ER visit?: No
Condition: Good
Covid-19: Not Applicable
Discharge Problem:
UTI (urinary tract infection)
Instructions: Urinary tract infections in adults
Prescriptions:
New
amoxicillin-pot clavulanate 875-125 mg tablet
1 tab PO BID Qty: 14 0RF
No Action
pantoprazole 40 mg tablet,delayed release (DR/EC)
40 mg PO DAILY
methenamine hippurate 1 gram tablet
1 g PO BID
rosuvastatin 10 mg tablet
10 mg PO DAILY@2000
mycophenolate mofetil 500 mg tablet
500 mg PO BID
aspirin 81 mg Tablet,Chewable
81 mg PO DAILY
melatonin 5 mg Tablet
10 mg PO HS
Caltrate 600 plus D 600 mg-20 mcg (800 unit) Tablet,Chewable
1 tab PO BID
famotidine 20 mg tablet
10 mg PO Q48H@2200
latanoprost 0.005 % drops
1 drp BOTH EYES HS
benzonatate 200 mg capsule
200 mg PO TIDPRN PRN (Reason: cough)
valacyclovir 500 mg Tablet
500 mg PO MOWEFR@0800
acetaminophen [Tylenol Extra Strength] 500 mg Tablet
500 mg PO Q6H PRN (Reason: mild pain)
ferrous sulfate [iron] 325 mg (65 mg iron) Tablet
325 mg PO DAILY
sertraline 50 mg tablet
50 mg PO DAILY
loratadine [Claritin] 10 mg Tablet
10 mg PO DAILY MDD ALLERGIES
Artificial Tears (PF) Dropperette
1 drp BOTH EYES QIDPRN PRN (Reason: Dry eye)
cholestyramine (with sugar) 4 gram Powder In Packet
4 g PO DAILY@1400
PreserVision AREDS-2 250-90-40-1 mg Capsule
1 tab PO BID
Paxlovid 150-100 mg Tablets,Dose Pack
1 ea PO BID Qty: 6 0RF
oseltamivir 30 mg Capsule
30 mg PO DAILY Qty: 3 0RF
Referrals:
Blanche De La Cruz MD [Active, Gynecology] - Call in 1-3 days for appt
Delio Bryson DO [Family Provider, Internal Medicine] - Follow up in 2-3 days
Activity Restrictions/Additional Instructions:
Return to the emergency department for any changes in/worsening of your symptoms, especially fever/chills, increasing abdominal pain, vomiting, increasing discharge, or for any further concerns.
Interventions
Interventions:
*Risk Screen - Suicide Last Done: 09/20/25 16:09
*General Assessment Last Done: 09/20/25 16:09
*Neglect/Abuse Screening Last Done: 09/20/25 16:09
*ED COVID-19 Vaccine History Last Done: 09/20/25 16:09
*ED Influenza Vaccine History Last Done: 09/20/25 16:09
ED-Female Genitourinary Assessment Last Done: 09/20/25 20:59
Discharge Date and Time
Print Language: SYRIAN
[2025-09-20] MEDS: AUGMENTIN 875 MG/125 MG 1 TABLET PO (22:25)
== END 2025-09-20 22:42 | disposition home or self-care (01) ==
LOC: EMR 16:02
PROVIDERS: Nurse Practitioner; EMERGENCY PHYSICIAN Student in an Organized Health Care Education/Training Program; FAMILY PHYSICIAN Internal Medicine
DX: N39.0 Urinary tract infection, site not specified (principal); Z79.82 Long term (current) use of aspirin; Z87.891 Personal history of nicotine dependence; Z85.828 Personal history of other malignant neoplasm of skin
CPT/HCPCS: 99284; 76856; 80053; 81003; 81015; 85025; 85610; 85730; 86850; 86900; 86901; 87086

== ENCOUNTER → 2025-10-26 11:28 | Outpatient (REF) | payer MEDICARE, BC, SELFPAY | LOC: RAD 11:28 | PROVIDERS: ATTENDING PHYSICIAN Physician Assistant; FAMILY PHYSICIAN Internal Medicine | DX: R05.3 Chronic cough (principal) | CPT/HCPCS: 71046 ==